=== PATIENT | female | born 1945 | race Caucasian/White ===

== ENCOUNTER 2020-10-05 09:37 | Outpatient (REF) | payer MEDICARE, OTHER, SELFPAY ==
[2020-10-05 11:18] LABS: Hematocrit 39.4 % (37-47); Hemoglobin 12.8 g/dl (12.0-16.0); Mean Corpuscular HGB Conc 32.5 g/dl (31.0-35.0); Mean Corpuscular Volume 95.4 fL (80-98); Mean Platelet Volume 10.6 fL (9.4-12.3); Platelet Count 257 X10*3/uL (160-400); Red Blood Count 4.13 X10*6/uL (4.20-5.50); Red Cell Distribution Width 14.1 % (11.0-16.0); White Blood Count 5.6 X10*3/uL (4.8-10.8)
[2020-10-05 11:54] LABS: Alanine Aminotransferase 13 U/L (0-31); Anion Gap 13 (12-20); Aspartate Amino Transferase 21 U/L (5-31); Blood Urea Nitrogen 13 mg/dL (9-16); Calcium 9.3 mg/dL (8.4-10.2); Carbon Dioxide 28 mmol/L (22-29); Chloride 104 mmol/L (96-108); Cholesterol 188 mg/dL; Estimated Glomerular Filt Rate > 60; Glucose Fasting 91 mg/dL (60-99); HDL Cholesterol 83 mg/dL; LDL Cholesterol Calculated 81 mg/dl; Potassium 3.8 mmol/L (3.3-5.1); Sodium 141 mmol/L (135-145); Triglycerides 123 mg/dL
[2020-10-05 12:03] LABS: Thyroid Stimulating Hormone 2.77 uIU/mL (0.32-4.0); Vitamin D 25-OH Total 59.5 ng/mL (>30)
== END 2020-10-05 09:38 | disposition home or self-care (01) ==
LOC: HO.HMGCLNP 09:37
PROVIDERS: PCP Internal Medicine; Visit Provider Internal Medicine
DX: E78.5 Hyperlipidemia, unspecified (principal); E03.9 Hypothyroidism, unspecified; Z78.0 Asymptomatic menopausal state
CPT/HCPCS: 80048; 80061; 82306; 84439; 84443; 84450; 84460; 85027

== ENCOUNTER 2021-04-12 09:29 | Outpatient (REF) | payer MEDICARE, OTHER, SELFPAY ==
[2021-04-12 12:39] LABS: Folate 18.6 ng/mL (> or = 4.0); Vitamin B12 566 pg/mL (200-900)
[2021-04-12 14:22] LABS: Alanine Aminotransferase 16 U/L (0-31); Aspartate Amino Transferase 22 U/L (5-31); Cholesterol 193 mg/dL; HDL Cholesterol 87 mg/dL; LDL Cholesterol Calculated 76 mg/dl; Triglycerides 150 mg/dL
[2021-04-12 14:27] LABS: Vitamin D 25-OH Total 61.9 ng/mL (>30)
== END 2021-04-12 09:30 | disposition home or self-care (01) ==
LOC: HO.HMGCLDS 09:29
PROVIDERS: PCP Internal Medicine; Visit Provider Internal Medicine
DX: E03.9 Hypothyroidism, unspecified (principal); E78.5 Hyperlipidemia, unspecified; Z78.0 Asymptomatic menopausal state
CPT/HCPCS: 36415; 80061; 82306; 82607; 82746; 84450; 84460

== ENCOUNTER 2021-05-27 08:45 | Outpatient (REF) | payer MEDICARE, OTHER, SELFPAY ==
--- NOTE | ~2021-05-27 | MM_ITS ---
EXAMINATION: MM SCREENING DIGITAL BREAST TOMOSYNTHESIS, BILATERAL CLINICAL INFORMATION: Screening. Asymptomatic. The lifetime risk of breast cancer based on the Tyrer-Cuzick Model is 3.6%. COMPARISON: Mammography: April 21, 2020 and studies dating back to September 18, 2013 TECHNIQUE: Digital breast tomosynthesis is performed in both the craniocaudal and mediolateral oblique views along with computer-aided detection (CAD). Synthesized 2D images are generated from the tomosynthesis. FINDINGS: There are scattered areas of fibroglandular density (ACR BI-RADS breast composition Category b). There are no significant masses, abnormal calcifications, or other abnormalities. MM/MM tomosynthesis screening BI IMPRESSION: There are no significant changes from prior study. ASSESSMENT: BI-RADS 1: Negative RECOMMENDATION: Routine annual mammography screening. This patient's information was entered into a reminder system with a target due date for their next mammogram.
== END 2021-05-27 08:46 | disposition home or self-care (01) ==
LOC: HO.MAMMO 08:45
PROVIDERS: Visit Provider Internal Medicine
DX: Z12.31 Encounter for screening mammogram for malignant neoplasm of breast (principal)
CPT/HCPCS: 77063; 77067

== ENCOUNTER 2021-11-17 11:10 | Outpatient (REF) | payer MEDICARE, OTHER, SELFPAY ==
[2021-11-17 14:21] LABS: Alanine Aminotransferase 15 U/L (0-31); Anion Gap 12 (12-20); Aspartate Amino Transferase 23 U/L (5-31); Blood Urea Nitrogen 12 mg/dL (9-16); Calcium 9.9 mg/dL (8.4-10.2); Carbon Dioxide 28 mmol/L (22-29); Chloride 106 mmol/L (96-108); Cholesterol 181 mg/dL; Estimated Glomerular Filt Rate > 60; Glucose Fasting 99 mg/dL (60-99); HDL Cholesterol 83 mg/dL; LDL Cholesterol Calculated 78 mg/dl; Potassium 4.4 mmol/L (3.3-5.1); Sodium 142 mmol/L (135-145); Triglycerides 104 mg/dL
[2021-11-17 14:30] LABS: Free T4 (Free Thyroxine) 1.04 ng/dL (0.71-1.85)
== END 2021-11-17 11:11 | disposition home or self-care (01) ==
LOC: HO.HMGCLDS 11:10
PROVIDERS: PCP Internal Medicine; Visit Provider Internal Medicine
DX: E03.9 Hypothyroidism, unspecified (principal); E78.5 Hyperlipidemia, unspecified; I10 Essential (primary) hypertension; Z78.0 Asymptomatic menopausal state
CPT/HCPCS: 36415; 80048; 80061; 82306; 84439; 84443; 84450; 84460

== ENCOUNTER 2022-02-09 06:25 | Day surgery (SDC) | payer MEDICARE, OTHER, SELFPAY ==
--- NOTE | 2022-02-07 12:05 | P.CONAN_ITS ---
Documented by User: Marline Alva NP 02/07/22 12:06 HPI - Anesthesia Eval Consult details Narrative: 76yo F for Colonoscopy PMFSH Active Problems Active Problems: All Active Problems (Updated 02/02/22 @ 19:31 by Jessica Antunez, SARAH) Mild intermittent asthma (Acute) Primary osteoarthritis of knees, bilateral (Acute) Tubular adenoma of colon (Acute) Postmenopause (Acute) Dyslipidemia (Acute) Acquired hypothyroidism (Acute) Past Medical History Medical History Acquired hypothyroidism Arthritis Dyslipidemia History of blood transfusion Intraocular melanoma of left eye Mild intermittent asthma Postmenopause Primary osteoarthritis of knees, bilateral Tubular adenoma of colon Family History Family History Father Coronary artery disease Brother Colon cancer Surgical History Surgical History History of appendectomy History of colonoscopy History of meniscectomy of right knee History of repair of rectocele History of right breast biopsy History of surgical removal of ganglion cyst Hx of enucleation of left eyeball Hx of tonsillectomy Social History Social History Housing: House Alcohol intake: current Alcohol intake frequency: 3 or more drinks per day Patient Tobacco Use Status: Former Tobacco user Years Smoked: 20 years Use of substances other than those prescribed or required for medical reasons: No Are you DNR?: No Advance Directives: No Advance Directives Information Provided: Yes Advance Directives on File: No Recently lost weight without trying: No Nutrition Risks: No Nutritional Risk Current occupational status: retired Cognitive needs: No Hearing needs: No Vision needs: Yes Meds Allergies Allergy/AdvReac Type Severity Reaction Status Date / Time No Known Allergies Allergy Mild N/A Verified 11/23/21 11:12 Home Medications Medication Instructions Recorded Confirmed Last Taken Type cholecalciferol (vitamin D3) 25 25 mcg PO DAILY 10/09/20 02/02/22 Unknown History mcg (1,000 unit) capsule folic acid 1 mg tablet 1 mg PO DAILY 10/09/20 02/02/22 Unknown History glucosamine HCl 500 mg tablet 500 mg PO DAILY 10/09/20 02/02/22 Unknown History multivitamin 1 tab PO DAILY 10/09/20 02/02/22 Unknown History omega-3 fatty acids 1,000 mg 1,000 mg PO DAILY 10/09/20 02/02/22 Unknown History capsule (Fish Oil Concentrate) vitamin B complex (B 1 tab PO DAILY 10/09/20 02/02/22 Unknown History Complex-Vitamin B12 tablet) aspirin 81 mg tablet,delayed 81 mg PO DAILY 11/23/21 02/09/22 01/26/22 History release (Adult Low Dose Aspirin) Exam Exam Date and Time: February 07, 2022 1205 Height,Weight and Vital Signs: Height 5 ft Pertinent Lab Results Pertinent Lab Results: Laboratory Tests 10/05/20 11/17/21 09:48 11:17 WBC 5.6 Hgb 12.8 Hct 39.4 Plt Count 257 Sodium 142 Potassium 4.4 Chloride 106 Carbon Dioxide 28 BUN 12 Creatinine 0.84 Assessment and Plan Assessment Anesthesia Assessment: Chart Reviewed Documented by User: Elizabeth Lu MD 02/09/22 07:28 [facility] Past Medical History Medical History Acquired hypothyroidism Arthritis Dyslipidemia History of blood transfusion Intraocular melanoma of left eye Mild intermittent asthma Postmenopause Primary osteoarthritis of knees, bilateral Tubular adenoma of colon Functional capacity: independent ambulation Patient : No Family History Family History Father Coronary artery disease Brother Colon cancer Family history of problems with anesthesia: No Surgical History Surgical History History of appendectomy History of colonoscopy History of meniscectomy of right knee History of repair of rectocele History of right breast biopsy History of surgical removal of ganglion cyst Hx of enucleation of left eyeball Hx of tonsillectomy History of Problems with Anesthesia: No Social History Social History Housing: House Alcohol intake: current Alcohol intake frequency: 3 or more drinks per day Patient Tobacco Use Status: Former Tobacco user Years Smoked: 20 years Use of substances other than those prescribed or required for medical reasons: No Are you DNR?: No Advance Directives: No Advance Directives Information Provided: Yes Advance Directives on File: No Recently lost weight without trying: No Nutrition Risks: No Nutritional Risk Current occupational status: retired Cognitive needs: No Hearing needs: No Vision needs: Yes Meds Allergies Allergy/AdvReac Type Severity Reaction Status Date / Time No Known Allergies Allergy Mild N/A Verified 11/23/21 11:12 Home Medications Medication Instructions Recorded Confirmed Last Taken Type cholecalciferol (vitamin D3) 25 25 mcg PO DAILY 10/09/20 02/02/22 Unknown History mcg (1,000 unit) capsule folic acid 1 mg tablet 1 mg PO DAILY 10/09/20 02/02/22 Unknown History glucosamine HCl 500 mg tablet 500 mg PO DAILY 10/09/20 02/02/22 Unknown History multivitamin 1 tab PO DAILY 10/09/20 02/02/22 Unknown History omega-3 fatty acids 1,000 mg 1,000 mg PO DAILY 10/09/20 02/02/22 Unknown History capsule (Fish Oil Concentrate) vitamin B complex (B 1 tab PO DAILY 10/09/20 02/02/22 Unknown History Complex-Vitamin B12 tablet) aspirin 81 mg tablet,delayed 81 mg PO DAILY 11/23/21 02/09/22 01/26/22 History release (Adult Low Dose Aspirin) Exam Airway Mallampati Class: II TM Dist: >3cm Neck ROM: Full Heart: RRR Lungs: CTA Assessment and Plan Final Anesthetic Review Family History of Problems with Anesthesia: No History of Problems with Anesthesia: No ASA Class: II Final Preanesthetic Review: No Changes in Pt Med Stat, Meds/Allgs Chart Reviewed, Consent Obtained/Reviewed and Anes Risks/Benef Reviewed Patient Risk: Low Procedure Risk: Low Anesthetic Plan Anesthetic Plan: MAC: Disposition: Standard PACU
[2022-02-09 07:08] VITALS: BP 127/74; PULSE 55; RESP 16; TEMP 36.1; O2SAT 97; BMI 26.4
[2022-02-09] MEDS: Lactated Ringers 1,000 ML 100 ML IVCONT (07:12)
[2022-02-09 08:32] VITALS: BP 101/57; PULSE 55; RESP 20; TEMP 36.1; O2SAT 99
--- NOTE | 2022-02-09 08:39 | P.BOP_ITS ---
Brief Operative Note Date of Service: 02/09/22 Pre-op diagnosis: Screening Post-op diagnosis: other (Diverticulosis) Procedure: Colonoscopy to the cecum and TI Surgeon: Paul Machuca Anesthesia: MAC Was an Route Sales Specialist used for this Procedure?: No Estimated blood loss (mL): 0 Pathology: none sent Condition: stable Disposition: PACU
[2022-02-09 08:46] VITALS: BP 120/65; PULSE 51; RESP 20; TEMP 36.1; O2SAT 100
--- NOTE | 2022-02-09 09:02 | HO.POSTANES ---
Post Anesthesia Evaluation Post Anesthesia Evaluation Vital Signs: Vital Signs Temp Pulse Resp BP Pulse Ox O2 Del Method 02/09/22 08:46 97 F 51 20 120/65 100 Room Air 02/09/22 08:32 97 F 55 20 101/57 L 99 Room Air 02/09/22 07:08 97 F 55 16 127/74 97 Room Air Anesthesia: Monitored Mental Status: Awake Pain Control: Satisfactory Nausea/Vomiting: None Hydration: Adequate Anesthesia-Related Issues: No Anes. Related Issues
--- NOTE | 2022-02-09 20:48 | OP_ITS ---
SURGEON: Paul Machuca MD INDICATIONS: The patient presents for evaluation of colorectal cancer screening and personal history of tubular adenoma of the colon. Full consent has been obtained from her for this, including risks of bleeding and perforation. PREOPERATIVE DIAGNOSIS: Colorectal cancer screening and personal history of tubular adenoma of the colon. POSTOPERATIVE DIAGNOSIS: Colorectal cancer screening and personal history of tubular adenoma of the colon, diverticulosis, and internal hemorrhoids. PROCEDURE PERFORMED: Colonoscopy to the cecum and terminal ileum. ESTIMATED BLOOD LOSS: COMPLICATIONS: ANESTHESIA: Monitored anesthesia care. ASSISTANTS: SPECIMENS: DESCRIPTION OF PROCEDURE: The patient was placed in the left lateral decubitus position. The digital rectal exam revealed no abnormalities. The Olympus video pediatric colonoscope was entered into the rectum and advanced easily to the cecum. Once in the cecum, I did identify a normal-appearing cecal pouch other than some diverticula. The terminal ileum was cannulated and appeared normal. The scope was withdrawn back in the colon. The entire cecum and ileocecal valve appeared normal. The scope was slowly withdrawn assessing all mucosal surfaces carefully. Preparation was excellent. I did not visualize any sign of polyps, colitis, nor angiodysplasia. There was a moderate amount of diverticulosis in the ascending colon and sigmoid colon. In the rectum, the scope was retroflexed visualizing some small internal hemorrhoids, but no other pathology. The rectal mucosa appeared normal. The scope was straightened and withdrawn from the patient. She tolerated the procedure well and was returned to the recovery area in stable condition. IMPRESSION: 1. Diverticulosis. 2. Internal hemorrhoids. PLAN: Given today's negative exam and a negative colonoscopy in 2017, and her age of 76, I do not think she will need any further screening colonoscopies. As such, she will see me on a p.r.n. basis. She was advised that she could resume aspirin and fish oil today. MD MOISES Elaine/GUILLEL / [id number]
== END 2022-02-09 09:15 | disposition home or self-care (01) ==
PROVIDERS: PCP Internal Medicine; Visit Provider Internal Medicine
PROC: 0DJD8ZZ Inspection of Lower Intestinal Tract, Via Natural or Artificial Opening Endoscopic (ICD-10-PCS; CPT 45378; principal; 2022-02-09 07:30)
DX: Z12.11 Encounter for screening for malignant neoplasm of colon (principal); Z86.010 Personal history of colon polyps; Z80.0 Family history of malignant neoplasm of digestive organs; K57.30 Diverticulosis of large intestine without perforation or abscess without bleeding; K64.8 Other hemorrhoids; E78.5 Hyperlipidemia, unspecified; E03.9 Hypothyroidism, unspecified; Z85.840 Personal history of malignant neoplasm of eye; Z90.01 Acquired absence of eye; Z79.899 Other long term (current) drug therapy; Z79.82 Long term (current) use of aspirin; Z87.891 Personal history of nicotine dependence
CPT/HCPCS: G0105

== ENCOUNTER 2022-05-10 09:39 | Outpatient (REF) | payer MEDICARE, OTHER, SELFPAY ==
--- NOTE | ~2022-05-10 | XR_ITS ---
EXAMINATION: XR WRIST, RIGHT CLINICAL INFORMATION: Pain COMPARISON: None TECHNIQUE: PA, lateral, and oblique views of the right wrist. FINDINGS: No acute fracture or dislocation. Chronic erosion of the distal radius at the distal radioulnar joint with prominent osteophytes at the distal ulna. Soft tissue calcification surrounds this area. Severe chronic degenerative changes of the first carpometacarpal joint with joint space narrowing, sclerosis, and osteophyte. Osteophytes are noted at the second and third metacarpophalangeal joints. Prominent soft tissue swelling of the wrist. XR/XR wrist RT min 3V IMPRESSION: 1. No acute fracture or malalignment. Prominent soft tissue swelling of the wrist. 2. Severe degenerative changes of the first carpometacarpal joint. 3. Chronic erosion of the distal radius at the distal radioulnar joint. Associated significant degenerative change. Cannot exclude recurrent or prior infection at this site, particularly given the soft tissue calcification and swelling.
== END 2022-05-10 09:40 | disposition home or self-care (01) ==
LOC: HO.HMGCX 09:39
PROVIDERS: PCP Internal Medicine; Visit Provider Emergency Medicine
DX: M25.50 Pain in unspecified joint (principal)
CPT/HCPCS: 73110

== ENCOUNTER 2022-05-30 09:24 | Outpatient (REF) | payer MEDICARE, OTHER, SELFPAY ==
--- NOTE | ~2022-05-30 | MM_ITS ---
EXAMINATION: MM SCREENING DIGITAL BREAST TOMOSYNTHESIS, BILATERAL CLINICAL INFORMATION: Screening. Asymptomatic. COMPARISON: Mammography: 05/27/2021, 04/21/2020, 12/21/2018 TECHNIQUE: Digital breast tomosynthesis is performed in both the craniocaudal and mediolateral oblique views along with computer-aided detection (CAD). Synthesized 2D images are generated from the tomosynthesis. FINDINGS: There are scattered areas of fibroglandular density (ACR BI-RADS breast composition Category b). There are no significant masses, abnormal calcifications, or other abnormalities. No developing density or architectural abnormality. Again, there are scattered bilateral round and rim and ductal secretory calcifications. Small stable nodule anterior medial left breast with fine peripheral calcification again seen. The axilla and skin contours are unremarkable. MM/MM tomosynthesis screening BI IMPRESSION: No mammographic evidence of malignancy. ASSESSMENT: BI-RADS 2: Benign RECOMMENDATION: Routine annual mammography screening. This patient's information was entered into a reminder system with a target due date for their next mammogram.
== END 2022-05-30 09:25 | disposition home or self-care (01) ==
LOC: HO.MAMMO 09:24
PROVIDERS: Visit Provider Internal Medicine
DX: Z12.31 Encounter for screening mammogram for malignant neoplasm of breast (principal)
CPT/HCPCS: 77063; 77067

== ENCOUNTER 2022-06-30 07:46 | Outpatient (REF) | payer MEDICARE, OTHER, SELFPAY ==
[2022-06-30 11:21] LABS: MANUAL DIFF FLAG NO
[2022-06-30 11:48] LABS: Alanine Aminotransferase 17 U/L (0-31); Aspartate Amino Transferase 22 U/L (5-31); Cholesterol 179 mg/dL; HDL Cholesterol 77 mg/dL; LDL Cholesterol Calculated 73 mg/dl; Triglycerides 149 mg/dL
[2022-06-30 11:54] LABS: Basophils Percent Auto 0.6 % (0-2); Eosinophils Absolute Auto 0.2 X10*3/uL (0.0-0.4); Eosinophils Percent Auto 3.3 % (0-4); Hematocrit 42.6 % (37.0-47.0); Hemoglobin 13.6 g/dl (12.0-16.0); Imm Gran Abs Auto 0.01 X10*3/uL (0.00-0.03); Imm Gran Pct Auto 0.1 % (0.0-0.4); Lymphocytes Percent Auto 44.6 % (20-40); Mean Corpuscular HGB Conc 31.9 g/dl (31.0-35.0); Mean Corpuscular Hemoglobin 30.6 pg (27.0-33.0); Mean Corpuscular Volume 95.7 fL (80.0-98.0); Mean Platelet Volume 10.8 fL (9.4-12.3); Monocytes Absolute Auto 0.5 X10*3/uL (0.1-1.2); Monocytes Percent Auto 6.9 % (2-11); Neutrophils Percent Auto 44.5 % (45-73); Platelet Count 287 X10*3/uL (160-400); Red Blood Count 4.45 X10*6/uL (4.20-5.50); Red Cell Distribution Width 13.5 % (11.0-16.0); White Blood Count 6.7 X10*3/uL (4.8-10.8)
[2022-06-30 12:13] LABS: Vitamin D 25-OH Total 61.4 ng/mL (>30)
[2022-06-30 13:04] LABS: Free T4 (Free Thyroxine) 1.08 ng/dL (0.71-1.85)
== END 2022-06-30 07:47 | disposition home or self-care (01) ==
LOC: HO.HMGCLDS 07:46
PROVIDERS: PCP Internal Medicine; Visit Provider Internal Medicine
DX: D12.6 Benign neoplasm of colon, unspecified (principal); E03.9 Hypothyroidism, unspecified; E78.5 Hyperlipidemia, unspecified; Z78.0 Asymptomatic menopausal state
CPT/HCPCS: 36415; 80061; 82306; 84439; 84443; 84450; 84460; 85025

== ENCOUNTER 2022-07-07 10:33 | Outpatient (AMB) | payer MEDICARE, OTHER, SELFPAY ==
--- NOTE | 2022-07-07 10:42 | MHC.PC.OV ---
Vital Signs 07/07/22 10:45 Height 4 ft 11 in Weight 130 lb BMI 26.2 BP 110/64 Blood Pressure Location Lt brachial Position Sitting Pulse 69 Pulse Source Pulse Oximeter Pulse Oximetry (%) 98 Oxygen Delivery Method Room Air Intake Visit Reasons: 6 mo f/u lipids,thyroid Intake Note: Pt is here today for her 6 months f/u Allergies No Known Allergies Allergy (Mild, Verified 11/03/22 13:56) N/A Medication List - Last Reconciled 07/07/22 by Pina Wagner MD cholecalciferol (vitamin D3) 25 mcg PO DAILY folic acid 1 mg PO DAILY glucosamine HCl 500 mg PO DAILY indomethacin 25 mg PO TID PRN levothyroxine 50 mcg PO QAM multivitamin 1 tab PO DAILY omega-3 fatty acids (Fish Oil Concentrate) 1,000 mg PO DAILY simvastatin 20 mg PO BEDTIME vitamin B complex (B Complex-Vitamin B12 tablet) 1 tab PO DAILY Tobacco use date assessed: 07/07/22 Fall risk assessment: No Falls in past year Last assessed Fall Risk: 07/07/22 HPI 6 mo f/u lipids,thyroid HPI Details 77-year-old lady with hypothyroidism, and dyslipidemia, here today for her follow-up. She has been feeling well, compliant with taking medications, currently on thyroxine 50 mcg daily in a.m. and simvastatin 20 mg at bedtime together with [place] 3 fatty acids taken daily. She has been trying to stay active, but no regular exercise. No complaints at present time [facility] Medical History Acquired hypothyroidism Arthritis Dyslipidemia History of blood transfusion Intraocular melanoma of left eye Mild intermittent asthma Osteoarthritis of right wrist Postmenopause Primary osteoarthritis of knees, bilateral Tubular adenoma of colon Surgical History History of appendectomy History of colonoscopy History of meniscectomy of right knee History of repair of rectocele History of right breast biopsy History of surgical removal of ganglion cyst Hx of enucleation of left eyeball Hx of tonsillectomy Family History Father Coronary artery disease Brother Colon cancer Social History Housing: House Alcohol intake: current Alcohol intake frequency: 3 or more drinks per day Patient Tobacco Use Status: Former Tobacco user Years Smoked: 20 years e-Cigarette/Vaping Use: Never Used Current occupational status: retired Cognitive needs: No Hearing needs: No Vision needs: Yes Questionnaire PHQ-9 Over the last 2 weeks, how often have you been bothered by any of the following problems? 1. Little interest or pleasure in doing things: several days 2. Feeling down, depressed, or hopeless: not at all 3. Trouble falling or staying asleep, or sleeping too much: more than half the days 4. Feeling tired or having little energy: not at all 5. Poor appetite or overeating: not at all 6. Feeling bad about yourself - or that you are a failure or have let yourself or your family down: not at all 7. Trouble concentrating on things, such as reading the newspaper or watching television: not at all 8. Moving or speaking so slowly that other people could have noticed. Or the opposite - being so fidgety or restless that you have been moving around a lot more than usual: not at all 9. Thoughts that you would be better off or of hurting yourself in some way: not at all Total score: 3 Depression Screening Interpretation: Negative 10999 - PHQ-9 Billing: Yes Source: Developed by Drs. Paul Mariee, Mary Lou Harper, Yong Perez and colleagues, with an educational martha from [employer]. Thrive Questionnaire Date Thrive assessed: 07/07/22 I am a: Patient What is your living situation today?: I have a steady place to live Within the past 12 months, did the food you bought not last and you didn't have the money to get more?: Never true Within the past 12 months, did you worry whether your food would run out before you got money to buy more?: Never true Do you have trouble paying for medicines?: No Do you have trouble getting transportation to medical appointments?: No Do you have trouble paying your heating and electricity bill?: No Do you have trouble taking care of your child, family member or friend?: No Do you have trouble with day-to-day activities such as bathing, preparing meals, shopping, managing finances, etc.?: No Are you currently unemployed and looking for a job?: No Are you interested in more education?: No REGINE-7 AMB Questionnaire REGINE-7 Date REGINE - 7 assessed: 07/07/22 Feeling nervous, anxious, or on edge: 1 = Several days Not being able to stop or control worryin = Several days Worrying too much about different things: 1 = Several days Trouble relaxin = Several days Being so restless that it is hard to sit still: 0 = Not at all Becoming easily annoyed or irritable: 0 = Not at all Feeling afraid as if something awful might happen: 0 = Not at all Total REGINE-7 score (0-4 normal; 5-9 mild; 10-14 moderate; 15-21 severe): 4 Source: Developed by Drs. Paul Mariee, Mary Lou Harper, Yong Perez and colleagues, with an educational martha from [employer]. REGINE-7 Assessment Billing REGINE-7 Assessment Tool: REGINE-7 Assessment 10647 Asthma Control Questionnaire In the past 4 weeks, how much of the time did your asthma keep you from getting as much done at work, school or at home?: None of the time During the past 4 weeks, how often have you had shortness of breath?: Not at all During the past 4 weeks, how often did your asthma symptoms wake you up at night or earlier than usual in the morning?: Not at all During the past 4 weeks, how often have you had to use your rescue inhaler or nebulizer medication?: Not at all How would you rate your asthma control during the past 4 weeks?: Completely controlled Score: 25 Review of Systems Const All systems reviewed & are unremarkable except as noted in HPI and below Physical exam (Primary Care) Vital Signs: Last Vital Signs Pulse 69 07/07/22 10:45 BP 110/64 07/07/22 10:45 Pulse Ox 98 07/07/22 10:45 Oxygen Delivery Method Room Air 07/07/22 10:45 BMI result Body Mass Index 26.2 Tobacco/Smoking Status: Tobacco use Status Tobacco use date assessed 07/07/22 07/07/22 10:46 Patient Tobacco Use Status Former Tobacco user 07/07/22 10:44 e-Cigarette/Vaping Use Never Used 07/07/22 10:46 PHQ-9: PHQ-9 Score PHQ-9: Total score 3 07/07/22 11:39 Depression Screening Interpretation: Negative Thrive Assessment: Date of Thrive Assessment Date Thrive assessed 07/07/22 07/07/22 11:39 Const General: comfortable, no acute distress and alert Orientation/consciousness: patient oriented x3 Limitations: no limitations HENMT Mouth: moist mucous membranes Neck Neck: Yes full ROM (Thyroid gland nonpalpable), Yes no lymphadenopathy and Yes supple Resp Effort & Inspection: normal respiratory effort and able to speak in complete sentences Auscultation: clear to auscultation bilaterally Cardio Rate: regular rate Rhythm: regular rhythm Heart sounds: S1 normal heart sound present and S2 normal heart sound present GI Palpation (GI): Soft to palpation, nontender and no masses Auscultation: normal bowel sounds Skin General skin exam: no rashes or lesions noted Neuro General: patient oriented x3, gait normal, tone normal, moves all extremities, Normal light touch and pain sensation and no focal motor deficits Cranial nerves: Yes CN's II-XII intact bilaterally Cognition (Neuro): normal cognition Extrem General: Yes full ROM, Yes no joint enlargement, Yes no clubbing, cyanosis or edema and Yes no calf tenderness Immunizations pneumoc 20-michael conj-dip cr(PF) Performing Provider: Pina Wagner MD Administered by: ELMA Oquendo on 07/07/22 11:35 Dose Route Admin Location Lot Number Expiration Date NDC Staff Counsel 0.5 mL IM Left Deltoid [id number] 10/21/23 0067-6640-97 [employer] VIS Given Date VIS Provided VIS Publication Date 07/07/22 Single Vaccine 21 Eligibility Eligibility Date Funding Source Not [facility] Eligible 07/07/22 Private Results Reviewed Results Reviewed: ENTERED: 06/30/22-748 OTHR WHITFIELD: ORDERED: CBC Auto Diff Test Result Flag Reference Site WBC 6.7 4.8-10.8 X10*3/uL RBC 4.45 4.20-5.50 X10*6/uL HGB 13.6 12.0-16.0 g/dl HCT 42.6 37.0-47.0 % MCV 95.7 80.0-98.0 fL MCH 30.6 27.0-33.0 pg MCHC 31.9 31.0-35.0 g/dl RDW 13.5 11.0-16.0 % PLT 287 160-400 X10*3/uL ENTERED: 06/30/22 YUNIEL WHITFIELD: ORDERED: AST, ALT, Lipid Panel, Vitamin D 25-OH, Free T4, TSH Test Result Flag Reference Site AST (GOT) 22 5-31 U/L ALT (GPT) 17 0-31 U/L Triglyceride 149 mg/dL Desirable Triglyceride: less than 150 mg/dL Borderline High Triglyceride 150-199 mg/dL High Triglyceride: 200-499 mg/dL Very High Triglyceride: greater than or equal to 5OO mg/dL Chol 179 mg/dL Desirable Cholesterol: less than 200 mg/dL Borderline High Cholesterol: 200-239 mg/dL High Cholesterol: greater than 239 mg/dL LDL Calculated 73 mg/dl Desirable LDL: less than 100 mg/dL Near Optimal/Above Optimal LDL: 110-129 mg/dL Borderline High LDL: 130-159 mg/dL High LDL: 160-189 mg/dL Very High LDL: greater than or equal to 190 mg/dL HDL 77 mg/dL Desirable HDL: greater than 40 mg/dL Note: This HDL assay may give artificially low results in patients with liver disease. Vit D 25-OH Tot 61.4 >30 ng/mL Health Based Reference Values* < 20 ng/mL Deficient 20-30 ng/mL Insufficient > 30 ng/mL Sufficient *Myranda BOJORQUEZ. N Engl J Med. 2007;[id number]:[id number] Care must be taken in interpreting Vitamin D results from different laboratories and methodologies. Published data demonstrated that results from patients undergoing hemodialysis may show a negative bias when tested with various automated 25-OH vitamin D assays when compared to LC-MS/MS. When testing samples from patients whose predominant form of Vitamin D is Vitamin D2, such as patients receiving Vitamin D2 supplementation, results that are subtherapeutic should be confirmed with another method such as LC-MS/MS. Free T4 1.08 0.71-1.85 ng/dL TSH 3rd Gen. 4.50 H 0.32-4.0 uIU/mL Note: A sustained TSH level above 2.5 uIU/mL may warrant further investigation. Assessment and Plan Assessment & Plan (1) Dyslipidemia: Code(s): E78.5 - Hyperlipidemia, unspecified Plan: Reviewed recent fasting lipid profile with patient with lipid levels goal . Continue with simvastatin and [place] 3 fatty acid supple , in addition to adherence to low-cholesterol diet and regular exercise, at least 30 minutes 3 to 4 times a week. Advised patient to make healthy food choices, eat more fruits, vegetables, whole grains, wild caught fish and low-fat dairy. Limit amount of meat and fried or fatty food products, as well as processed foods and fast foods. Follow-up scheduled with repeat fasting lipid panel in 4 months. (2) Acquired hypothyroidism: Code(s): E03.9 - Hypothyroidism, unspecified Plan: Thyroid levels are within normal limits, feels fine and current dose continued on levothyroxine 50 mcg daily in a.m. recheck levels again in 4 months (3) Need for pneumococcal 20-valent conjugate vaccination: Code(s): Z23 - Encounter for immunization Plan: Prevnar 20 given today Orders: Orders Alanine Aminotransferase 10/24/22 M19.031 - Primary osteoarthritis, right wrist, M17.0 - Bilateral primary osteoarthritis of knee, Z78.0 - Asymptomatic menopausal state, E78.5 - Hyperlipidemia, unspecified, E03.9 - Hypothyroidism, unspecified Aspartate Amino Transferase 10/24/22 M19.031 - Primary osteoarthritis, right wrist, M17.0 - Bilateral primary osteoarthritis of knee, Z78.0 - Asymptomatic menopausal state, E78.5 - Hyperlipidemia, unspecified, E03.9 - Hypothyroidism, unspecified Vitamin B12 and Folate 10/24/22 M19.031 - Primary osteoarthritis, right wrist, M17.0 - Bilateral primary osteoarthritis of knee, Z78.0 - Asymptomatic menopausal state, E78.5 - Hyperlipidemia, unspecified, E03.9 - Hypothyroidism, unspecified Basic Metabolic Panel Fasting 10/24/22 M19.031 - Primary osteoarthritis, right wrist, M17.0 - Bilateral primary osteoarthritis of knee, Z78.0 - Asymptomatic menopausal state, E78.5 - Hyperlipidemia, unspecified, E03.9 - Hypothyroidism, unspecified Lipid Panel 10/24/22 M19.031 - Primary osteoarthritis, right wrist, M17.0 - Bilateral primary osteoarthritis of knee, Z78.0 - Asymptomatic menopausal state, E78.5 - Hyperlipidemia, unspecified, E03.9 - Hypothyroidism, unspecified Free T4 (Free Thyroxine) 10/24/22 E03.9 - Hypothyroidism, unspecified, M19.031 - Primary osteoarthritis, right wrist, M17.0 - Bilateral primary osteoarthritis of knee, Z78.0 - Asymptomatic menopausal state, E78.5 - Hyperlipidemia, unspecified Thyroid Stimulating Hormone 10/24/22 M19.031 - Primary osteoarthritis, right wrist, M17.0 - Bilateral primary osteoarthritis of knee, Z78.0 - Asymptomatic menopausal state, E78.5 - Hyperlipidemia, unspecified, E03.9 - Hypothyroidism, unspecified Uric Acid 10/24/22 M19.031 - Primary osteoarthritis, right wrist, M17.0 - Bilateral primary osteoarthritis of knee, Z78.0 - Asymptomatic menopausal state, E78.5 - Hyperlipidemia, unspecified, E03.9 - Hypothyroidism, unspecified Vitamin D 25-OH Total 10/24/22 M19.031 - Primary osteoarthritis, right wrist, M17.0 - Bilateral primary osteoarthritis of knee, Z78.0 - Asymptomatic menopausal state, E78.5 - Hyperlipidemia, unspecified, E03.9 - Hypothyroidism, unspecified Pneumococcal 20 Immunization 07/07/22 Z23 - Encounter for immunization Coding Level of Care Code Est Pt Level 3 (36255) Diagnoses Dyslipidemia E78.5 Acquired hypothyroidism E03.9 Need for pneumococcal 20-valent conjugate vaccination Z23 Additional Codes REGINE-7 Assessment Billing - REGINE-7 Assessment Tool: REGINE-7 Assessment 08226 ([id number])
[2022-07-07 10:45] VITALS: BP 110/64; PULSE 69; O2SAT 98; BMI 26.2
== END 2022-07-07 11:36 | disposition home or self-care (01) ==
LOC: HO.HMGC 10:33
PROVIDERS: PCP Internal Medicine; Visit Provider Internal Medicine
DX: Z23 Encounter for immunization
CPT/HCPCS: 90471; 90677; 99213

== ENCOUNTER 2022-10-27 08:35 | Outpatient (REF) | payer MEDICARE, OTHER, SELFPAY ==
[2022-10-27 13:49] LABS: Alanine Aminotransferase 16 U/L (0-31); Anion Gap 17 (12-20); Aspartate Amino Transferase 25 U/L (5-31); Blood Urea Nitrogen 12 mg/dL (9-16); Calcium 9.5 mg/dL (8.4-10.2); Carbon Dioxide 25 mmol/L (22-29); Chloride 107 mmol/L (96-108); Cholesterol 196 mg/dL; Estimated Glomerular Filt Rate > 60; Glucose Fasting 93 mg/dL (60-99); HDL Cholesterol 87 mg/dL; LDL Cholesterol Calculated 86 mg/dl; Potassium 4.5 mmol/L (3.3-5.1); Sodium 144 mmol/L (135-145); Triglycerides 119 mg/dL; Uric Acid 5.7 mg/dL (2.4-5.7)
[2022-10-27 14:16] LABS: Folate 16.5 ng/mL (> or = 4.0); Free T4 (Free Thyroxine) 0.95 ng/dL (0.71-1.85); Thyroid Stimulating Hormone 3.11 uIU/mL (0.32-4.0); Vitamin B12 946 pg/mL (200-900)
== END 2022-10-27 08:36 | disposition home or self-care (01) ==
LOC: HO.HMGCLDS 08:35
PROVIDERS: PCP Internal Medicine; Visit Provider Internal Medicine
DX: E03.9 Hypothyroidism, unspecified (principal); E78.5 Hyperlipidemia, unspecified; M17.0 Bilateral primary osteoarthritis of knee; M19.031 Primary osteoarthritis, right wrist; Z78.0 Asymptomatic menopausal state
CPT/HCPCS: 36415; 80048; 80061; 82306; 82607; 82746; 84439; 84443; 84450; 84460; 84550

== ENCOUNTER 2023-04-27 11:32 | Outpatient (REF) | payer MEDICARE, OTHER, SELFPAY ==
[2023-04-27 13:28] LABS: Alanine Aminotransferase 13 U/L (0-31); Aspartate Amino Transferase 23 U/L (5-31); Cholesterol 171 mg/dL (<200); HDL Cholesterol 82 mg/dL (>40); LDL Cholesterol Calculated 70 mg/dL (<100); Triglycerides 96 mg/dL (<150)
[2023-04-27 13:44] LABS: Free T4 (Free Thyroxine) 1.01 ng/dL (0.71-1.85); Thyroid Stimulating Hormone 1.47 uIU/mL (0.32-4.0)
[2023-04-27 13:58] LABS: Folate 15.6 ng/mL (> or = 4.0); Vitamin B12 528 pg/mL (200-900)
== END 2023-04-27 11:33 | disposition home or self-care (01) ==
LOC: HO.HMGCLDS 11:32
PROVIDERS: PCP Internal Medicine; Visit Provider Internal Medicine
DX: E78.5 Hyperlipidemia, unspecified (principal); E03.9 Hypothyroidism, unspecified; R74.8 Abnormal levels of other serum enzymes; H61.23 Impacted cerumen, bilateral
CPT/HCPCS: 36415; 80061; 82607; 82746; 84439; 84443; 84450; 84460

== ENCOUNTER 2023-05-03 10:31 | Outpatient (AMB) | payer MEDICARE, OTHER, SELFPAY ==
[2023-05-03 11:16] VITALS: BP 118/60; PULSE 61; O2SAT 96; BMI 26.5
--- NOTE | 2023-05-03 11:16 | A.OFFPC_ITS ---
Vital Signs 05/03/23 11:16 Height 4 ft 11 in Weight 131 lb BMI 26.5 BP 118/60 Blood Pressure Location Rt brachial Position Sitting Pulse 61 Pulse Source Pulse Oximeter Pulse Oximetry (%) 96 Oxygen Delivery Method Room Air Intake Visit Reasons: 6m follow up Intake Note: patient is here for her 6mo. f/u Allergies No Known Allergies Allergy (Mild, Verified 05/03/23 11:35) N/A Medication List - Last Reconciled 05/03/23 by Pina Wagner MD folic acid 1 mg PO DAILY glucosamine HCl 500 mg PO DAILY levothyroxine 50 mcg PO QAM multivitamin 1 tab PO DAILY omega-3 fatty acids (Fish Oil Concentrate) 1,000 mg PO DAILY simvastatin 20 mg PO BEDTIME Tobacco use date assessed: 05/03/23 Fall risk assessment: No Falls in past year Last assessed Fall Risk: 05/03/23 Dental Screening Dental Screen Date: 05/03/23 Did you have a dental visit in the last 12 months?: Yes Did you have a dental problem in the last 6 months where you did not have access to dental care?: No Was dental information given to patient?: Patient has dentist HPI 6m follow up HPI Details 77-year-old lady, presents today for her six-month follow-up. She is currently feeling well, stays active, plays pickleball regularly she has been compliant with taking her medications and following healthy diet. Currently on simvastatin 20 mg at bedtime and [place] 3 fatty acid supplements for her hyperlipidemia, and is on levothyroxine 50 mcg once a day in a.m. for her hypothyroidism. 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, bilateral Tubular adenoma of colon Postmenopause Dyslipidemia Acquired hypothyroidism Surgical History History of colonoscopy History of surgical removal of ganglion cyst Hx of enucleation of left eyeball History of meniscectomy of right knee History of repair of rectocele History of right breast biopsy Hx of tonsillectomy History of appendectomy Family History Father Coronary artery disease Brother Colon cancer Social History Housing: House Alcohol intake: current Alcohol intake frequency: 3 or more drinks per day Patient Tobacco Use Status: Former Tobacco user Years Smoked: 20 years e-Cigarette/Vaping Use: Never Used Current occupational status: retired Cognitive needs: No Hearing needs: No Vision needs: Yes Questionnaire PHQ-9 Over the last 2 weeks, how often have you been bothered by any of the following problems? Depression Screening Interpretation: Negative Depression Screening Done: Yes Source: Developed by Drs. Paul Mariee, Mary Lou Harper, Yong Perez and colleagues, with an educational martha from [employer]. Thrive Questionnaire Date Thrive assessed: 11/01/22 AUDIT C Alcohol Use Questionnaire (AUDIT-C) 1. How often do you have a drink containing alcohol?: Monthly or less 2. How many drinks containing alcohol do you have on a typical day when you are drinking?: 1 or 2 Total Score: 1 REGINE-7 AMB Questionnaire REGINE-7 Date REGINE - 7 assessed: 11/01/22 Source: Developed by Drs. Paul Mariee, Mary Lou Harper, Yong Perez and colleagues, with an educational martha from [employer]. Review of Systems Const Denies difficulty sleeping Eyes Denies change in vision ENT Reports no additional complaints Card Reports no additional complaints, Denies chest pain and Denies dyspnea Resp Denies cough and Denies dyspnea GI Denies abdominal pain, Denies melena, Denies bloating, Denies hematochezia, Denies change in bowel habits and Denies heartburn Denies urinary frequency, Denies difficulty voiding and Denies dysuria Musc Reports as per HPI Skin/Breast Denies breast pain, Denies breast mass, Denies lesions and Denies rash Neuro Reports no additional complaints Psych Reports no additional complaints Endo Reports no additional complaints Hemanth/Lymph Reports no additional complaints Aller/Immun Reports no additional complaints Physical exam (Primary Care) Vital Signs: Last Vital Signs Pulse 61 05/03/23 11:16 BP 118/60 05/03/23 11:16 Pulse Ox 96 05/03/23 11:16 Oxygen Delivery Method Room Air 05/03/23 11:16 BMI result Body Mass Index 26.5 Tobacco/Smoking Status: Tobacco use Status Tobacco use date assessed 05/03/23 05/03/23 11:18 Patient Tobacco Use Status Former Tobacco user 05/03/23 11:18 e-Cigarette/Vaping Use Never Used 05/03/23 11:18 Depression Screening Interpretation: Negative Thrive Assessment: Date of Thrive Assessment Date Thrive assessed 11/01/22 05/03/23 11:18 Const General: comfortable, no acute distress and alert Orientation/consciousness: patient oriented x3 HENMT Ears: external ears normal General nose exam: Normal external nose present Mouth: moist mucous membranes Eyes Other: Artificial eye on left General: appearance normal, both eyes and all related structures Pupils: Equal, round and reactive pupils present Neck Other: Thyroid nonpalpable Neck: Yes full ROM, Yes no lymphadenopathy and Yes supple Resp Effort & Inspection: normal respiratory effort and able to speak in complete sentences Auscultation: clear to auscultation bilaterally Cardio Rate: regular rate Rhythm: regular rhythm Heart sounds: S1 normal heart sound present and S2 normal heart sound present GI Palpation (GI): Soft to palpation, nontender and no masses Auscultation: normal bowel sounds Back/Spine/Pelvis Back: No back tenderness Skin General skin exam: no rashes or lesions noted Neuro General: patient oriented x3, gait normal, tone normal, moves all extremities, Normal light touch and pain sensation and no focal motor deficits Cranial nerves: Yes CN's II-XII intact bilaterally and Yes Equal, round and reactive pupils present Cognition (Neuro): normal cognition Extrem General: Yes full ROM, Yes no joint enlargement, Yes no clubbing, cyanosis or edema and Yes no calf tenderness Psych Mental Status: mental status grossly normal Speech and movement: Normal speech and movement present Affect: normal affect Results Reviewed Results Reviewed: ENTERED: 04/27/23-[address]: ORDERED: AST, ALT, Lipid Panel, Free T4, TSH Test Result Flag Reference Site AST (GOT) 23 5-31 U/L ALT (GPT) 13 0-31 U/L Triglyceride 96 <150 mg/dL Desirable Triglyceride: less than 150 mg/dL Borderline High Triglyceride 150-199 mg/dL High Triglyceride: 200-499 mg/dL Very High Triglyceride: greater than or equal to 5OO mg/dL Cholesterol 171 <200 mg/dL Desirable Cholesterol: less than 200 mg/dL Borderline High Cholesterol: 200-239 mg/dL High Cholesterol: greater than 239 mg/dL LDL Calculated 70 <100 mg/dL Desirable LDL: less than 100 mg/dL Near Optimal/Above Optimal LDL: 110-129 mg/dL Borderline High LDL: 130-159 mg/dL High LDL: 160-189 mg/dL Very High LDL: greater than or equal to 190 mg/dL HDL 82 >40 mg/dL Desirable HDL: greater than 40 mg/dL Note: This HDL assay may give artificially low results in patients with liver disease. Free T4 1.01 0.71-1.85 ng/dL TSH 3rd Gen. 1.47 0.32-4.0 uIU/mL TSH 3rd Generation ([facility]) Assessment and Plan Assessment & Plan (1) Dyslipidemia: Code(s): E78.5 - Hyperlipidemia, unspecified Plan: Reviewed recent fasting lipid profile with patient with levels within normal limits . Continue with simvastatin and [place] 3 fatty acid supplements , in addition to adherence to low-cholesterol diet and regular exercise, at least 30 minutes 3 to 4 times a week. Advised patient to make healthy food choices, eat more fruits, vegetables, whole grains, wild caught fish and low-fat dairy. Limit amount of meat and fried or fatty food products, as well as processed foods and fast foods. Follow-up scheduled with repeat fasting lipid panel in 6 months. (2) Acquired hypothyroidism: Code(s): E03.9 - Hypothyroidism, unspecified Plan: Thyroid levels are within normal limits, will continue on current dose of levothyroxine. Recheck again levels in six-month Orders: Orders Lipid Panel 10/23/23 E78.5 - Hyperlipidemia, unspecified, E03.9 - Hypothyroidism, unspecified Free T4 (Free Thyroxine) 10/23/23 E03.9 - Hypothyroidism, unspecified, E78.5 - Hyperlipidemia, unspecified Alanine Aminotransferase 10/23/23 E78.5 - Hyperlipidemia, unspecified, E03.9 - Hypothyroidism, unspecified Thyroid Stimulating Hormone 10/23/23 E78.5 - Hyperlipidemia, unspecified, E03.9 - Hypothyroidism, unspecified Aspartate Amino Transferase 10/23/23 E78.5 - Hyperlipidemia, unspecified, E03.9 - Hypothyroidism, unspecified Coding Level of Care Code Est Pt Level 3 (73081) Diagnoses Dyslipidemia E78.5 Acquired hypothyroidism E03.9
== END 2023-05-03 11:53 | disposition home or self-care (01) ==
PROVIDERS: Visit Provider Internal Medicine
DX: E78.5 Hyperlipidemia, unspecified (principal); E03.9 Hypothyroidism, unspecified
CPT/HCPCS: 99213; 99499

== ENCOUNTER 2023-06-08 07:37 | Outpatient (REF) | payer MEDICARE, OTHER, SELFPAY ==
--- NOTE | ~2023-06-08 | MM_ITS ---
EXAMINATION: MM SCREENING DIGITAL BREAST TOMOSYNTHESIS, BILATERAL CLINICAL INFORMATION: Screening. Asymptomatic. COMPARISON: Mammography: 05/30/2022, 05/27/2021, 04/21/2020, and studies dating back to September 18, 2013 TECHNIQUE: Digital breast tomosynthesis is performed in both the craniocaudal and mediolateral oblique views along with computer-aided detection (CAD). Synthesized 2D images are generated from the tomosynthesis. FINDINGS: There are scattered areas of fibroglandular density (ACR BI-RADS breast composition Category b). Again, there are scattered benign dystrophic type and secretory calcifications in both breasts. There are no suspicious calcifications. There are no suspicious masses, suspicious grouped calcifications, or areas of architectural distortion in either breast. The parenchymal pattern is stable from prior exams. MM/MM tomosynthesis screening BI IMPRESSION: No mammographic evidence of malignancy. ASSESSMENT: BI-RADS BI-RADS 2 - Benign Findings RECOMMENDATION: Routine annual mammography screening. 1 year F/U This examination should not preclude the clinical evaluation of a suspicious palpable abnormality. This patient's information was entered into a reminder system with a target due date for their next mammogram.
== END 2023-06-08 07:38 | disposition home or self-care (01) ==
LOC: HO.MAMMO 07:37
PROVIDERS: PCP Internal Medicine; Visit Provider Internal Medicine
DX: Z12.31 Encounter for screening mammogram for malignant neoplasm of breast (principal)
CPT/HCPCS: 77063; 77067

== ENCOUNTER → 2023-06-08 07:45 | Outpatient (BNV) | payer MEDICARE, OTHER, SELFPAY | PROVIDERS: PCP Internal Medicine; Visit Provider Radiology Diagnostic Radiology | DX: Z12.31 Encounter for screening mammogram for malignant neoplasm of breast (principal) | CPT/HCPCS: 77063; 77067 ==

== ENCOUNTER 2023-11-01 09:18 | Outpatient (REF) | payer MEDICARE, OTHER, SELFPAY ==
[2023-11-01 11:48] LABS: Free T4 (Free Thyroxine) 1.05 ng/dL (0.71-1.85); Thyroid Stimulating Hormone 1.47 uIU/mL (0.32-4.0)
[2023-11-01 11:52] LABS: Alanine Aminotransferase 16 U/L (0-31); Aspartate Amino Transferase 22 U/L (5-31); Cholesterol 175 mg/dL (<200); HDL Cholesterol 76 mg/dL (>40); LDL Cholesterol Calculated 78 mg/dL (<100); Triglycerides 109 mg/dL (<150)
== END 2023-11-01 09:19 | disposition home or self-care (01) ==
LOC: HO.HMGCLDS 09:18
PROVIDERS: PCP Internal Medicine; Visit Provider Internal Medicine
DX: E03.9 Hypothyroidism, unspecified (principal); E78.5 Hyperlipidemia, unspecified
CPT/HCPCS: 36415; 80061; 84439; 84443; 84450; 84460

== ENCOUNTER 2023-11-06 11:26 | Outpatient (AMB) | payer MEDICARE, OTHER, SELFPAY ==
--- NOTE | 2023-11-06 11:31 | A.OFFPC_ITS ---
Vital Signs 11/06/23 11:37 Height 4 ft 10.5 in Weight 134 lb BMI 27.5 BP 124/72 Blood Pressure Location Lt brachial Position Sitting Pulse 59 Pulse Source Pulse Oximeter Pulse Oximetry (%) 98 Oxygen Delivery Method Room Air Intake Visit Reasons: 6 month fu Intake Note: Pt is here today for her 6 months Allergies No Known Allergies Allergy (Mild, Verified 11/06/23 12:08) N/A Medication List - Last Reconciled 11/06/23 by Pina Wagner MD folic acid 1 mg PO DAILY glucosamine HCl 500 mg PO DAILY levothyroxine 50 mcg PO QAM multivitamin 1 tab PO DAILY omega-3 fatty acids (Fish Oil Concentrate) 1,000 mg PO DAILY simvastatin 20 mg PO BEDTIME Tobacco use date assessed: 11/06/23 Fall risk assessment: No Falls in past year Last assessed Fall Risk: 11/06/23 Dental Screening Dental Screen Date: 11/06/23 Did you have a dental visit in the last 12 months?: Yes Did you have a dental problem in the last 6 months where you did not have access to dental care?: No Was dental information given to patient?: Patient has dentist HPI 6 month fu HPI Details 77-year-old lady with hyperlipidemia, hy pothyroidism and arthritis, here today for her follow-up. She has been compliant with taking her medications, with recent fasting labs showing normal thyroid levels and cholesterol levels. She however was recently diagnosed with basal cell CA on her scalp, cheek and shoulder and upper back, currently being followed at [facility] and is is consultation for possible Mohs surgery. She also has been having intermittent episodes of tingling and whitish discoloration of the tips of her fingers and toes pressure when exposed to cold temperature denies any pain in her fingers however she has difficulty sometimes opening door knobs and jars. Currently being seen by [facility] waiting appointment to get a nerve conduction study. 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, bilateral Tubular adenoma of colon Postmenopause Dyslipidemia Acquired hypothyroidism Surgical History History of colonoscopy History of surgical removal of ganglion cyst Hx of enucleation of left eyeball History of meniscectomy of right knee History of repair of rectocele History of right breast biopsy Hx of tonsillectomy History of appendectomy Family History Father Coronary artery disease Brother Colon cancer Social History Housing: House Alcohol intake: current Alcohol intake frequency: 3 or more drinks per day Patient Tobacco Use Status: Former Tobacco user Years Smoked: 20 years e-Cigarette/Vaping Use: Never Used Current occupational status: retired Cognitive needs: No Hearing needs: No Vision needs: Yes Questionnaire PHQ-9 Over the last 2 weeks, how often have you been bothered by any of the following problems? 1. Little interest or pleasure in doing things: not at all 2. Feeling down, depressed, or hopeless: not at all 3. Trouble falling or staying asleep, or sleeping too much: not at all 4. Feeling tired or having little energy: not at all 5. Poor appetite or overeating: not at all 6. Feeling bad about yourself - or that you are a failure or have let yourself or your family down: not at all 7. Trouble concentrating on things, such as reading the newspaper or watching television: not at all 8. Moving or speaking so slowly that other people could have noticed. Or the opposite - being so fidgety or restless that you have been moving around a lot more than usual: not at all 9. Thoughts that you would be better off or of hurting yourself in some way: not at all Total score: 0 Depression Screening Interpretation: Negative Depression Screening Done: Yes 03079 - PHQ-9 Billing: Yes Source: Developed by Drs. Paul Mariee, Mary Lou Harper, Yong Perez and colleagues, with an educational martha from [employer]. Thrive Questionnaire Date Thrive assessed: 11/06/23 I am a: Patient What is your living situation today?: I have a steady place to live Within the past 12 months, did the food you bought not last and you didn't have the money to get more?: Never true Within the past 12 months, did you worry whether your food would run out before you got money to buy more?: Never true Do you have trouble paying for medicines?: No Do you have trouble getting transportation to medical appointments?: No Do you have trouble paying your heating and electricity bill?: No Do you have trouble taking care of your child, family member or friend?: No Do you have trouble with day-to-day activities such as bathing, preparing meals, shopping, managing finances, etc.?: No Are you currently unemployed and looking for a job?: No Are you interested in more education?: No THRIVE Score: 0 AUDIT C Alcohol Use Questionnaire (AUDIT-C) 1. How often do you have a drink containing alcohol?: 2-3 times a week 2. How many drinks containing alcohol do you have on a typical day when you are drinking?: 1 or 2 3. How often do you have six or more drinks on one occasion?: Never Total Score: 3 REGINE-7 AMB Questionnaire REGINE-7 Date REGINE - 7 assessed: 11/06/23 Feeling nervous, anxious, or on edge: 1 = Several days Not being able to stop or control worryin = Several days Worrying too much about different things: 1 = Several days Trouble relaxin = Several days Being so restless that it is hard to sit still: 1 = Several days Becoming easily annoyed or irritable: 1 = Several days Feeling afraid as if something awful might happen: 0 = Not at all Total REGINE-7 score (0-4 normal; 5-9 mild; 10-14 moderate; 15-21 severe): 6 Source: Developed by Drs. Paul Mariee, Mary Lou Harper, Yong Perez and colleagues, with an educational martha from [employer]. REGINE-7 Assessment Billing REGINE-7 Assessment Tool: REGINE-7 Assessment 98170 Review of Systems Const Denies difficulty sleeping, Denies fatigue, Denies fever(s), Denies frequent falls and Denies weakness Eyes Denies change in vision ENT Reports no additional complaints Card Reports no additional complaints, Denies chest pain and Denies dyspnea Resp Denies cough and Denies dyspnea GI Denies abdominal pain, Denies melena, Denies bloating, Denies hematochezia, Denies change in bowel habits and Denies heartburn Denies urinary frequency, Denies difficulty voiding and Denies dysuria Musc Reports as per HPI Skin/Breast Reports as per HPI, Denies breast pain and Denies breast mass Neuro Reports no additional complaints, Denies frequent falls and Denies weakness Psych Reports no additional complaints Endo Reports no additional complaints and Denies fatigue Hemanth/Lymph Reports no additional complaints Aller/Immun Reports no additional complaints Physical exam (Primary Care) Vital Signs: Last Vital Signs Pulse 59 11/06/23 11:37 BP 124/72 11/06/23 11:37 Pulse Ox 98 11/06/23 11:37 Oxygen Delivery Method Room Air 11/06/23 11:37 BMI result Body Mass Index 27.5 Tobacco/Smoking Status: Tobacco use Status Tobacco use date assessed 11/06/23 11/06/23 11:34 Patient Tobacco Use Status Former Tobacco user 11/06/23 11:34 e-Cigarette/Vaping Use Never Used 11/06/23 11:34 PHQ-9: PHQ-9 Score PHQ-9: Total score 0 11/06/23 12:13 Depression Screening Interpretation: Negative Thrive Assessment: Date of Thrive Assessment Date Thrive assessed 11/06/23 11/06/23 11:42 Const General: comfortable, no acute distress and alert Orientation/consciousness: patient oriented x3 HENMT Ears: external ears normal General nose exam: Normal external nose present Mouth: moist mucous membranes Eyes Other: Artificial eye on left Neck Other: Thyroid nonpalpable Neck: Yes full ROM, Yes no lymphadenopathy and Yes supple Resp Effort & Inspection: normal respiratory effort and able to speak in complete sentences Auscultation: clear to auscultation bilaterally Cardio Rate: regular rate Rhythm: regular rhythm Heart sounds: S1 normal heart sound present and S2 normal heart sound present GI Palpation (GI): Soft to palpation, nontender and no masses Auscultation: normal bowel sounds Back/Spine/Pelvis Back: No back tenderness Skin General skin exam: no rashes or lesions noted Neuro General: patient oriented x3, gait normal, tone normal, moves all extremities, Normal light touch and pain sensation and no focal motor deficits Cranial nerves: Yes CN's II-XII intact bilaterally Cognition (Neuro): normal cognition Psych Mental Status: mental status grossly normal Speech and movement: Normal speech and movement present Affect: normal affect Results Reviewed Results Reviewed: RUN: 11/06/23 1209 PAGE 1 [facility] [address] [place] [id number] Clearing Hand: Quincy Lopez M.D. Specimen Inquiry Name: Radhika Curran Age/Sex: 77/F : 1945 Unit#: [id number] Attend Dr: Pina Wagner MD Re11/01/23 Status: DEP [facility]F [facility] Disch: SPEC : [id number] MOSHE: 11/01/23 STATUS: COMP REQ : [id number] RECD: 11/01/23-[address]: Pina Wagner MD COMP: 11/01/238 ENTERED: 11/01/[address]: ORDERED: AST, ALT, Lipid Panel, Free T4, TSH Test Result Flag Reference AST (GOT) 22 5-31 U/L ALT (GPT) 16 0-31 U/L Triglyceride 109 <150 mg/dL Desirable Triglyceride: less than 150 mg/dL Borderline High Triglyceride 150-199 mg/dL High Triglyceride: 200-499 mg/dL Very High Triglyceride: greater than or equal to 5OO mg/dL Cholesterol 175 <200 mg/dL Desirable Cholesterol: less than 200 mg/dL Borderline High Cholesterol: 200-239 mg/dL High Cholesterol: greater than 239 mg/dL LDL Calculated 78 <100 mg/dL Desirable LDL: less than 100 mg/dL Near Optimal/Above Optimal LDL: 110-129 mg/dL Borderline High LDL: 130-159 mg/dL High LDL: 160-189 mg/dL Very High LDL: greater than or equal to 190 mg/dL HDL 76 >40 mg/dL Desirable HDL: greater than 40 mg/dL Note: This HDL assay may give artificially low results in patients with liver disease. Free T4 1.05 0.71-1.85 ng/dL TSH 3rd Gen. 1.47 0.32-4.0 uIU/mL TSH 3rd Generation ([facility]) Assessment and Plan Assessment & Plan (1) Postmenopause: Code(s): Z78.0 - Asymptomatic menopausal state Plan: Due for repeat bone density scan, ordered. Patient stays active, takes adequate calcium from dietary sources and takes a multivitamin with vitamin-D include (2) Encounter for screening for osteoporosis: Code(s): Z13.820 - Encounter for screening for osteoporosis Plan: Bone density scan ordered (3) Dyslipidemia: Code(s): E78.5 - Hyperlipidemia, unspecified Plan: Reviewed recent fasting lipid profile with patient with levels within normal limits . Continue with simvastatin 20 mg at bedtime and Wittmann 3 fatty acid supplements daily , in addition to adherence to low-cholesterol diet and regular exercise, at least 30 minutes 3 to 4 times a week. Advised patient to make healthy food choices, eat more fruits, vegetables, whole grains, wild caught fish and low-fat dairy. Limit amount of meat and fried or fatty food products, as well as processed foods and fast foods. (4) Acquired hypothyroidism: Code(s): E03.9 - Hypothyroidism, unspecified Plan: Thyroid levels are within normal limits, continued on current dose of levothyroxine 50 mcg daily in a.m. Orders: Orders XR DEXA axial skeleton 11/06/23 Z13.820 - Encounter for screening for osteoporosis, Z78.0 - Asymptomatic menopausal state MM tomosynthesis screening BI 11/06/23 Z12.31 - Encounter for screening mammogram for malignant neoplasm of breast Coding Level of Care Code Est Pt Level 4 (35383) Diagnoses Postmenopause Z78.0 Encounter for screening for osteoporosis Z13.820 Dyslipidemia E78.5 Acquired hypothyroidism E03.9 Additional Codes REGINE-7 Assessment Billing - REGINE-7 Assessment Tool: REGINE-7 Assessment 18691 ([id number])
[2023-11-06 11:37] VITALS: BP 124/72; PULSE 59; O2SAT 98; BMI 27.5
== END 2023-11-06 15:33 | disposition home or self-care (01) ==
PROVIDERS: PCP Internal Medicine; Visit Provider Internal Medicine
DX: Z78.0 Asymptomatic menopausal state (principal); Z13.820 Encounter for screening for osteoporosis; E78.5 Hyperlipidemia, unspecified; E03.9 Hypothyroidism, unspecified
CPT/HCPCS: 99214

== ENCOUNTER 2024-06-13 11:05 | Outpatient (REF) | payer MEDICARE, OTHER, SELFPAY ==
--- NOTE | ~2024-06-13 | MM_ITS ---
EXAMINATION: MM SCREENING DIGITAL BREAST TOMOSYNTHESIS, BILATERAL CLINICAL INFORMATION: Screening. Asymptomatic. COMPARISON: Mammography: Comparison is made with available priors TECHNIQUE: Digital breast mammography with tomosynthesis is performed in both the craniocaudal and mediolateral oblique views along with computer-aided detection (CAD). FINDINGS: The breasts are heterogeneously dense, which may obscure small masses (ACR BI-RADS breast composition Category c). There are no significant masses, abnormal calcifications, or other abnormalities. MM/MM tomosynthesis screening BI IMPRESSION: No mammographic evidence of malignancy. ASSESSMENT: BI-RADS BI-RADS 1 - Negative RECOMMENDATION: Routine annual mammography screening. 1 year F/U This examination should not preclude the clinical evaluation of a suspicious palpable abnormality. This patient's information was entered into a reminder system with a target due date for their next mammogram. Electronically signed by: Tarah Cardona DO 06/24/2024 09:45 AM [facility]
--- NOTE | ~2024-06-13 | MM_ITS ---
EXAMINATION: BONE DENSITOMETRY CLINICAL INDICATION: Menopause. COMPARISON: Previous BD dated 12/21/2018 and baseline BD dated 06/04/2015. TECHNIQUE: Using a Razer DXA System (software version: 13.1) manufactured by [employer], dual-energy x-ray absorptiometry was performed of the lumbar spine and left hip. The images are of good technical quality. Summary results are attached. FINDINGS: LEFT FEMUR, NECK: Current: BMD 0.893 g/cm2, Z-score 1.2, T-score -1.0, normal. Prior: BMD 0.930 g/cm2. Baseline: BMD 0.960 g/cm2. LEFT FEMUR, TOTAL: Current: BMD 1.014 g/cm2, Z-score 2.1, T-score 0.1, normal, 2.2% decrease from previous, 5.0% decrease from baseline (<5% change is not significant). Prior: BMD 1.037 g/cm2. Baseline: BMD 1.067 g/cm2. AP SPINE L1-L3 (excluding L4): The data of L1-L4 has been changed to exclude the L4 vertebral body, because at this level may cause overestimation of lumbar spine density. Current: BMD 1.282 g/cm2, Z-score 2.9, T-score 0.9, normal, 0.9% increase from previous, 3.5% increase from baseline (<5% change is not significant). Prior: BMD 1.271 g/cm2. Baseline: BMD 1.239 g/cm2. IDENTIFIED RISK FACTORS: Menopause, height loss, history of fracture (adult), low calcium intake. HISTORY OF FRACTURE: Other. MEDICATIONS: Multivitamin, vitamin D. MM/XR DEXA axial skeleton IMPRESSION: 1. DIAGNOSIS: Normal bone density based on the lowest T-score value of -1.0 in the femoral neck applying World Health Organization criteria. 2. 10-YEAR FRACTURE RISK PREDICTION, FRAX: According to the guidelines, FRAX calculation should only be performed on patients in the osteopenia bone density category. Therefore, FRAX was not performed on this patient. 3. Treatment Recommendations: NOF guidelines recommend consideration for treatment in postmenopausal women and men age 50 and older presenting with the following: -A hip or vertebral (clinical or morphometric) fracture. -T-score less than or equal to -2.5 at the femoral neck or spine after appropriate evaluation to exclude secondary causes. -Low bone mass at the hip or spine and a 10-year fracture probability by FRAX of greater than or equal to 3% for hip fracture or greater than or equal to 20% for major osteoporotic fracture based on the [place] adapted WHO algorithm. 4. Other Recommendations: All treatment decisions require clinical judgment and consideration of individual patient factors, including patient preferences, comorbidities, previous drug use, risk factors not captured in the FRAX model (e.g. frailty, falls, vitamin D deficiency, increased bone turnover, interval significant decline in bone density) and possible under or overestimation of fracture risk by FRAX. FUTURE SCAN RECOMMENDATION: People with diagnosed cases of osteoporosis or at high risk for fracture should have regular bone mineral density tests. For patients eligible for Medicare, routine testing is allowed once every 2 years. The testing frequency can be increased to one year for patients who have rapidly progressing disease, those who are receiving or discontinuing medical therapy to restore bone mass, or have additional risk factors. Electronically signed by: Angelita Hunter MD 06/13/2024 04:56 PM [facility]
== END 2024-06-13 11:06 | disposition home or self-care (01) ==
LOC: HO.MAMMO 11:05
PROVIDERS: PCP Internal Medicine; Visit Provider Internal Medicine
DX: Z12.31 Encounter for screening mammogram for malignant neoplasm of breast (principal); Z13.820 Encounter for screening for osteoporosis; Z78.0 Asymptomatic menopausal state
CPT/HCPCS: 77063; 77067; 77080

== ENCOUNTER → 2024-06-13 11:15 | Outpatient (BNV) | payer MEDICARE, OTHER, SELFPAY | PROVIDERS: PCP Internal Medicine; Visit Provider Internal Medicine | DX: Z12.31 Encounter for screening mammogram for malignant neoplasm of breast (principal) | CPT/HCPCS: 77063; 77067 ==

== ENCOUNTER 2024-11-06 10:25 | Outpatient (REF) | payer MEDICARE, OTHER, SELFPAY ==
--- OUTSIDE RECORDS SUMMARY | 2024-11-06 12:12 | XMS_ITS | Patient Health Record ---
Author Organization [facility] Address [address] [place] [address] Care Team Providers Care Coffee Farmer Name Role Phone Bernard MACEDO, Pina Primary Care Provider Paul Calvin Unavailable [phone] Allergies No Known Allergies Reason For Referral No Information Medications Medication SIG (Take, Route, Frequency, Duration) Notes Start Date End Date Status Aspirin Adult Low Strength 81 MG 1 tablet Orally Once a day Active Multivitamin Adult 1 1 tablet Orally onc e a day Active Folic Acid 400 MCG 1 tablet Orally Once a day Active Multivitamin - 1 tablet Orally Once a day for 30 day(s) Active Simvastatin 20 MG 1 tablet in the even ing Orally Once a day Active Levothyroxine Sodium 50 MCG 1 tablet Ora lly Once a day Active Glucosamine 500 MG 1 capsule with a justyna l Orally Once a day Active Fish Oil 1000 MG 1 capsule Orally Onc e a day Active Vitamin B12 Active Immunizations Vaccine Route Administration Date Status Comme nts Flu vaccine no Preserv 3 and > Unknown 04/13/2016 Admin istered Influenza Unknown 04/20/2021 Administered Problems Problem Type SNOMED Code ICD Code Onset Dates Problem Status W/U Status Risk Notes Problem 177328686 Encounter for screening for malignant neoplasm of colon (Z12.11) Active confirmed Problem 430175697 History of adenomatous polyp of colon (Z86.010) Active confirmed Problem Screening for malignant neoplasm of rectum (567999467) Encounter for screening for malignant neoplasm of rectum (Z12.12) Active confirmed Problem History of polyp of colon (548405913) History of colon polyps (Z86.010) Active confirmed Problem 896344798 Family history o f colon cancer (Z80.0) Active confirmed Problem 874817212 Long-term use of aspirin therapy (Z79.82) Active confirmed Problem Diverticulosis of colon (845246657) Diverticulosis of colon (K57.30) Active confirmed Plan Of Treatment Future Test Test Name Order Date COLONOSCOPY 05/05/2016 COLONOSCOPY 01/04/2022 Insurance Providers Payer Name Payer Address Payer Phone Subscriber Number Group Number Insured Name Patient Relationship to Insured Coverage Start Date Coverage End Date MEDICARE OF [place] [address] [place] [id number] HERMILO SNOW Self - patient is the insured [facility] [employer] [address] [place] [phone] [id number] HERMILO SNOW Self - patient is the insured Medical (General) History Medical History History ICD Code Colonoscopy 02-02-2011--small tubular adenoma removed; colonoscopies in 1996, 1999, and 2005--tubular adenomas removed; diffuse diverticulosis 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
[2024-11-06 13:29] LABS: Hematocrit 40.9 % (37.0-47.0); Hemoglobin 13.4 g/dl (12.0-16.0)
[2024-11-06 14:11] LABS: Alanine Aminotransferase 19 U/L (0-31); Anion Gap 11 (12-20); Aspartate Amino Transferase 28 U/L (5-31); Blood Urea Nitrogen 10 mg/dL (9-16); Calcium 9.5 mg/dL (8.4-10.2); Carbon Dioxide 27 mmol/L (22-29); Chloride 108 mmol/L (96-108); Cholesterol 171 mg/dL (<200); Estimated Glomerular Filt Rate > 60; Glucose Fasting 93 mg/dL (60-99); HDL Cholesterol 84 mg/dL (>40); LDL Cholesterol Calculated 69 mg/dL (<100); Potassium 4.2 mmol/L (3.3-5.1); Sodium 142 mmol/L (135-145); Triglycerides 90 mg/dL (<150)
[2024-11-06 14:12] LABS: Free T4 (Free Thyroxine) 1.08 ng/dL (0.71-1.85); Thyroid Stimulating Hormone 0.74 uIU/mL (0.32-4.0); Vitamin D 25-OH Total 85.5 ng/mL (>30)
== END 2024-11-06 10:26 | disposition home or self-care (01) ==
LOC: HO.HMGCLDS 10:25
PROVIDERS: PCP Internal Medicine; Visit Provider Internal Medicine
DX: J45.20 Mild intermittent asthma, uncomplicated (principal); M17.0 Bilateral primary osteoarthritis of knee; D12.6 Benign neoplasm of colon, unspecified; E78.5 Hyperlipidemia, unspecified; E03.9 Hypothyroidism, unspecified; Z78.0 Asymptomatic menopausal state
CPT/HCPCS: 36415; 80048; 80061; 82306; 84439; 84443; 84450; 84460; 85014; 85018

== ENCOUNTER 2024-11-11 08:29 | Outpatient (AMB) | payer MEDICARE, OTHER, SELFPAY ==
--- NOTE | 2024-11-11 08:50 | A.OFFPC_ITS ---
Vital Signs 11/11/24 09:00 Height 4 ft 10 in Weight 132 lb BMI 27.6 BP 118/82 Blood Pressure Location Rt brachial Position Sitting Respiration 16 Pulse 62 Pulse Source Pulse Oximeter Temp 97.8 F Temp Source Oral Pulse Oximetry (%) 98 Oxygen Delivery Method Room Air Intake Visit Reasons: Annual PE Intake Note: Pt is here today for her PE: Last mammogram 06/04/24, bone density scan 06/13/24, colonoscopy 08/05/16 Allergies No Known Allergies Allergy (Mild, Verified 11/11/24 09:25) N/A Medication List - Last Reconciled 11/11/24 by Pina Wagner MD glucosamine HCl 500 mg PO DAILY levothyroxine 50 mcg PO QAM multivitamin 1 tab PO DAILY omega-3 fatty acids (Fish Oil Concentrate) 1,000 mg PO DAILY simvastatin 20 mg PO BEDTIME Tobacco use date assessed: 11/11/24 Fall risk assessment: No Falls in past year Last assessed Fall Risk: 11/11/24 Dental Screening Dental Screen Date: 11/11/24 Did you have a dental visit in the last 12 months?: No Did you have a dental problem in the last 6 months where you did not have access to dental care?: No Was dental information given to patient?: Patient has dentist HPI Annual PE HPI Details 78-year-old lady with history of acquire d hypothyroidism, and dyslipidemia, here today for her physical exam. She has been feeling well, compliant with taking her medications, but having a lot of stress at home due to been illness. She had recent fasting labs done which showed normal fasting glucose, electrolytes, renal function, lipids, thyroid levels and no anemia noted. She is up-to-date with her screening mammogram, and bone density scan done 2023, both of which came back with normal findings and had a colonoscopy done in 2017 which showed normal results, no longer needs to get another scre ening done. 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, bilateral Tubular adenoma of colon Postmenopause Dyslipidemia Acquired hypothyroidism Surgical History History of colonoscopy History of surgical removal of ganglion cyst Hx of enucleation of left eyeball History of meniscectomy of right knee History of repair of rectocele History of right breast biopsy Hx of tonsillectomy History of appendectomy Family History Father Coronary artery disease Brother Colon cancer Social History Housing: House Alcohol intake: current Alcohol intake frequency: 3 or more drinks per day Patient Tobacco Use Status: Former Tobacco user Years Smoked: 20 years e-Cigarette/Vaping Use: Never Used Current occupational status: retired Cognitive needs: No Hearing needs: No Vision needs: Yes Questionnaire PHQ-9 Over the last 2 weeks, how often have you been bothered by any of the following problems? 1. Little interest or pleasure in doing things: not at all 2. Feeling down, depressed, or hopeless: not at all 3. Trouble falling or staying asleep, or sleeping too much: several days 4. Feeling tired or having little energy: not at all 5. Poor appetite or overeating: not at all 6. Feeling bad about yourself - or that you are a failure or have let yourself or your family down: not at all 7. Trouble concentrating on things, such as reading the newspaper or watching television: several days 8. Moving or speaking so slowly that other people could have noticed. Or the opposite - being so fidgety or restless that you have been moving around a lot more than usual: not at all 9. Thoughts that you would be better off or of hurting yourself in some way: not at all Total score: 2 Depression Screening Interpretation: Negative Depression Screening Done: Yes 08430 - PHQ-9 Billing: Yes Source: Developed by Drs. Paul Mariee, Mary Lou Harper, Yong Perez and colleagues, with an educational martha from [employer]. Thrive Questionnaire Date Thrive assessed: 11/11/24 I am a: Patient What is your living situation today?: I have a steady place to live Within the past 12 months, did the food you bought not last and you didn't have the money to get more?: Never true Within the past 12 months, did you worry whether your food would run out before you got money to buy more?: Never true Do you have trouble paying for medicines?: No Do you have trouble getting transportation to medical appointments?: No Do you have trouble paying your heating and electricity bill?: No Do you have trouble taking care of your child, family member or friend?: No Do you have trouble with day-to-day activities such as bathing, preparing meals, shopping, managing finances, etc.?: No Are you currently unemployed and looking for a job?: No Are you interested in more education?: No Please select the resources that you would like help with: None Currently or been in a relationship where the following occur: No concerns reported THRIVE Score: 0 AUDIT C Alcohol Use Questionnaire (AUDIT-C) 1. How often do you have a drink containing alcohol?: 2-3 times a week 2. How many drinks containing alcohol do you have on a typical day when you are drinking?: 1 or 2 3. How often do you have six or more drinks on one occasion?: Never Total Score: 3 REGINE-7 AMB Questionnaire REGINE-7 Date REGINE - 7 assessed: 11/11/24 Feeling nervous, anxious, or on edge: 1 = Several days Not being able to stop or control worryin = Several days Worrying too much about different things: 1 = Several days Trouble relaxin = Several days Being so restless that it is hard to sit still: 1 = Several days Becoming easily annoyed or irritable: 0 = Not at all Feeling afraid as if something awful might happen: 0 = Not at all Total REGINE-7 score (0-4 normal; 5-9 mild; 10-14 moderate; 15-21 severe): 5 Source: Developed by Drs. Paul Mariee, Mary Lou Harper, Yong Perez and colleagues, with an educational martha from [employer]. REGINE-7 Assessment Billing REGINE-7 Assessment Tool: REGINE-7 Assessment 94132 Review of Systems Const Denies fatigue, Denies fever(s), Denies frequent falls and Denies weakness Eyes Denies change in vision ENT Reports no additional complaints Card Reports no additional complaints, Denies chest pain and Denies dyspnea Resp Denies cough and Denies dyspnea GI Denies abdominal pain, Denies melena, Denies bloating, Denies hematochezia, Denies change in bowel habits and Denies heartburn Denies urinary frequency, Denies difficulty voiding and Denies dysuria Musc Reports as per HPI Skin/Breast Reports as per HPI, Denies breast pain and Denies breast mass Neuro Reports no additional complaints, Denies frequent falls and Denies weakness Psych Reports no additional complaints Endo Reports no additional complaints and Denies fatigue Hemanth/Lymph Reports no additional complaints Aller/Immun Reports no additional complaints Physical exam (Primary Care) Vital Signs: Last Vital Signs Temp 97.8 F 11/11/24 09:00 Pulse 62 11/11/24 09:00 Resp 16 11/11/24 09:00 BP 118/82 11/11/24 09:00 Pulse Ox 98 11/11/24 09:00 Oxygen Delivery Method Room Air 11/11/24 09:00 BMI result Body Mass Index 27.6 Tobacco/Smoking Status: Tobacco use Status Tobacco use date assessed 11/11/24 11/11/24 08:52 Patient Tobacco Use Status Former Tobacco user 11/11/24 08:52 e-Cigarette/Vaping Use Never Used 11/11/24 08:52 PHQ-9: PHQ-9 Score PHQ-9: Total score 3 11/11/24 09:24 Depression Screening Interpretation: Negative Thrive Assessment: Date of Thrive Assessment Date Thrive assessed 11/11/24 11/11/24 08:52 Currently or been in a relationship where the following occur: No concerns reported Const General: comfortable, no acute distress and alert Orientation/consciousness: patient oriented x3 HENMT Ears: external ears normal General nose exam: Normal external nose present Mouth: moist mucous membranes Eyes Other: Artificial eye on left Neck Other: Thyroid nonpalpable Neck: Yes full ROM, Yes no lymphadenopathy and Yes supple Resp Effort & Inspection: normal respiratory effort and able to speak in complete sentences Auscultation: clear to auscultation bilaterally Cardio Rate: regular rate Rhythm: regular rhythm Heart sounds: S1 normal heart sound present and S2 normal heart sound present GI Palpation (GI): Soft to palpation, nontender and no masses Auscultation: normal bowel sounds Back/Spine/Pelvis Back: No back tenderness Skin General skin exam: no rashes or lesions noted Neuro General: patient oriented x3, gait normal, tone normal, moves all extremities, Normal light touch and pain sensation and no focal motor deficits Cranial nerves: Yes CN's II-XII intact bilaterally Cognition (Neuro): normal cognition Extrem General: Yes full ROM, Yes no joint enlargement and Yes normal gait Psych Mental Status: mental status grossly normal Speech and movement: Normal speech and movement present Affect: normal affect Results Reviewed Results Reviewed: Name: Radhika Curran Age/Sex: 78/F : 1945 Unit#: [id number] Attend Dr: Pina Wagner MD Re11/06/24 Status: DEP [facility] Disch: SPEC : [id number] MOSHE: 11/06/24 STATUS: COMP REQ : [id number] RECD: 11/06/[address]: Pina Wagner MD COMP: 11/06/24 ENTERED: 11/06/[address]: ORDERED: Met Prof Fast, AST, ALT, Lipid Panel, Vitamin D 25-OH, Free T4, TSH Test Result Flag Reference Sodium 142 135-145 mmol/L Potassium 4.2 3.3-5.1 mmol/L CL 108 96-108 mmol/L CO2 27 22-29 mmol/L Gap 11 L 12-20 BUN 10 9-16 mg/dL Creat 0.80 0.5-1.4 mg/dL eGFR > 60 Chronic Kidney Disease: Estimated GFR < 60 mL/min/1.73m2 Severe Kidney Disease: Estimated GFR < 15 mL/min/1.73m2 FBS 93 60-99 mg/dL CA 9.5 8.4-10.2 mg/dL AST (GOT) 28 5-31 U/L ALT (GPT) 19 0-31 U/L Triglyceride 90 <150 mg/dL Desirable Triglyceride: less than 150 mg/dL Borderline High Triglyceride 150-199 mg/dL High Triglyceride: 200-499 mg/dL Very High Triglyceride: greater than or equal to 5OO mg/dL Cholesterol 171 <200 mg/dL Desirable Cholesterol: less than 200 mg/dL Borderline High Cholesterol: 200-239 mg/dL High Cholesterol: greater than 239 mg/dL LDL Calculated 69 <100 mg/dL Desirable LDL: less than 100 mg/dL Near Optimal/Above Optimal LDL: 110-129 mg/dL Borderline High LDL: 130-159 mg/dL High LDL: 160-189 mg/dL Very High LDL: greater than or equal to 190 mg/dL HDL 84 >40 mg/dL Desirable HDL: greater than 40 mg/dL Note: This HDL assay may give artificially low results in patients with liver disease. Vitamin D 25-OH 85.5 >30 ng/mL Health Based Reference Values* < 20 ng/mL Deficient 20-30 ng/mL Insufficient > 30 ng/mL Sufficient *Myranda BOJORQUEZ. N Engl J Med. 2007;357:266-280 There is no well-established upper level of normal vitamin D levels. Some laboratories use 50 ng/mL as an upper limit of normal. However, toxicity is patient-dependent and may occur at any level. Careful correlation with the patient's presentation is necessary and, if there is concern for vitamin D toxicity, treatment should be considered irrespective of the serum level. Care must be taken in interpreting Vitamin D results from different laboratories and methodologies. Published data demonstrated that results from patients undergoing hemodialysis may show a negative bias when tested with various automated 25-OH vitamin D assays when compared to LC-MS/MS. When testing samples from patients whose predominant form of Vitamin D is Vitamin D2, such as patients receiving Vitamin D2 supplementation, results that are subtherapeutic should be confirmed with another method such as LC-MS/MS. Free T4 1.08 0.71-1.85 ng/dL TSH 3rd Gen. 0.74 0.32-4.0 uIU/mL Laboratory Tests 11/22/19 04/12/21 11/17/21 11:40 09:42 11:17 Hgb Hct Sodium 142 Potassium 4.4 Chloride 106 Carbon Dioxide 28 Bicarbonate 27 Anion Gap 12 BUN 12 Creatinine 0.84 Fasting Glucose 99 Calcium 9.9 D AST 23 ALT 15 Triglycerides 104 Cholesterol 181 LDL Cholesterol, Calc 78 HDL Cholesterol 83 Vitamin B12 566 25-OH Vitamin D Total 64.0 TSH 1.20 Free T4 1.04 11/06/24 10:28 Hgb 13.4 Hct 40.9 Sodium Potassium Chloride Carbon Dioxide Bicarbonate Anion Gap BUN Creatinine Fasting Glucose Calcium AST ALT Triglycerides Cholesterol LDL Cholesterol, Calc HDL Cholesterol Vitamin B12 25-OH Vitamin D Total TSH Free T4 Coding Level of Care Code Est Pt Prev Care >65y(91362) Diagnoses Acquired hypothyroidism E03.9 Dyslipidemia E78.5 Annual visit for general adult medical examination with abnormal findings Z00.01 Additional Codes REGINE-7 Assessment Billing - REGINE-7 Assessment Tool: REGINE-7 Assessment 74455 ([id number]) PHQ-9 - 86991 - PHQ-9 Billing: Yes ([id number]) Assessment & Plan Assessment & Plan (1) Acquired hypothyroidism: Code(s): E03.9 - Hypothyroidism, unspecified Category: Medical Plan: Continued on levothyroxine 50 mcg daily in a.m. (2) Dyslipidemia: Code(s): E78.5 - Hyperlipidemia, unspecified Category: Medical Plan: Continue with l simvastatin 20 mg at bedtime together with reminded 3 fatty acid supplements daily (3) Annual visit for general adult medical examination with abnormal findings: Code(s): Z00.01 - Encounter for general adult medical examination with abnormal findings Plan: Recent fasting lab results discussed with patient. Continue with regular dental visit every 6 months and regular eye exams, at least every 2 years. Take adequate calcium in diet and vitamin-D 3 at 2000 IU per cap once a day, in addition to weight-bearing exercises to help maintain good muscle tone and weight control. Up-to-date with her screening mammogram and bone density scan, no longer gets colonoscopy screenings. Up-to-date with her vaccines Orders: Orders Thyroid Stimulating Hormone 03/24/25 E03.9 - Hypothyroidism, unspecified, E78.5 - Hyperlipidemia, unspecified, Z78.0 - Asymptomatic menopausal state Free T4 (Free Thyroxine) 03/24/25 E03.9 - Hypothyroidism, unspecified, E78.5 - Hyperlipidemia, unspecified, Z78.0 - Asymptomatic menopausal state Lipid Panel 03/24/25 E03.9 - Hypothyroidism, unspecified, E78.5 - Hyperlipidemia, unspecified, Z78.0 - Asymptomatic menopausal state Aspartate Amino Transferase 03/24/25 E03.9 - Hypothyroidism, unspecified, E78.5 - Hyperlipidemia, unspecified, Z78.0 - Asymptomatic menopausal state Alanine Aminotransferase 03/24/25 E03.9 - Hypothyroidism, unspecified, E78.5 - Hyperlipidemia, unspecified, Z78.0 - Asymptomatic menopausal state Basic Metabolic Panel Fasting 03/24/25 E03.9 - Hypothyroidism, unspecified, E78.5 - Hyperlipidemia, unspecified, Z78.0 - Asymptomatic menopausal state Vitamin D 25-OH Total 03/24/25 E03.9 - Hypothyroidism, unspecified, E78.5 - Hyperlipidemia, unspecified, Z78.0 - Asymptomatic menopausal state Medications: Refilled simvastatin 20 mg PO BEDTIME 90 tabs 4RF
[2024-11-11 09:00] VITALS: BP 118/82; PULSE 62; RESP 16; TEMP 36.6; O2SAT 98; BMI 27.6
== END 2024-11-11 10:01 | disposition home or self-care (01) ==
LOC: HO.HMCC 08:30
PROVIDERS: PCP Internal Medicine; Visit Provider Internal Medicine
DX: Z00.00 Encounter for general adult medical examination without abnormal findings (principal); E03.9 Hypothyroidism, unspecified; E78.5 Hyperlipidemia, unspecified

== ENCOUNTER → 2024-11-11 08:29 | Outpatient (BNVA) | payer MEDICARE, OTHER, SELFPAY | PROVIDERS: PCP Internal Medicine; Visit Provider Internal Medicine | DX: Z00.01 Encounter for general adult medical examination with abnormal findings (principal); E78.5 Hyperlipidemia, unspecified; E03.9 Hypothyroidism, unspecified | CPT/HCPCS: 96127; 99397 ==

== ENCOUNTER 2025-04-09 10:02 | Outpatient (REF) | payer MEDICARE, OTHER, SELFPAY ==
--- OUTSIDE RECORDS SUMMARY | 2025-04-09 12:07 | XMS_ITS | Patient Health Record ---
Author Organization [facility] Sarina wilfredo [place] Address [address] [place] [address] Care Team Providers Care Biometrics Instructor Name Role Phone Bernard MACEDO, Pina John Primary Care Provider Un available Black, Krissy Unavailable [phone] Allergies No Known Allergies Results Component Value Reference Range Notes X ray : Foot, left 3V Reviewed date:03/17/2025 12:21:25 PM Interpretation:See Examination above Performing Lab: Notes/Report: See Examination above X ray : Foot, right 3V Reviewed date:03/17/2025 12:21:15 PM Interpretation:See Examination above Performing Lab: Notes/Report: See Examination above Reason For Referral No Information Medications Medication SIG (Take, Route, Frequency, Duration) Notes Start Date End Date Status Levothyroxine Sodium 50 MCG Oral; Duration: 90 Days Active Simvastatin 20 MG Oral; Duration: 90 Days Active Immunizations Vaccine Route Administration Date Status Comme nts Influenza Unknown 03/24/2024 Administered Social History Tobacco Use: Social History Observation Description Date Details (start date - stop date) Never Smoker NA - NA Tobacco use other than smoking: Question Answer Notes Are you an other tobacco user? No Tobacco Control (Standard) Question Answer Notes Tobacco use: Nonsmoker Additional Findings: Tobacco non-user Current no nsmoker AUDIT-C (Standard) Question Answer Notes Did you have a drink containing alcohol in the p ast year? 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.072) Active confirmed Problem Osteoarthritis of midtarsal joint of right foot (3153594632765296 ) Osteoarthritis of midtarsal joint of right foot (M19.071) Active confirmed Vital Signs Blood pressure diastolic 79 mm Hg 03/17/2025 Height 4 ft 10 in in 03/17/2025 Blood pressure systolic 122 mm Hg 03/17/2025 Weight 130 lbs lbs 03/17/2025 BMI 27.17 kg/m2 03/17/2025 Procedures Procedure Date Ordered Date [place] [address] NAIL, 1-5 03/17/2025 N/A Encounters Encounter Location Date Provider Diagnosis [facility] [address] [place] [address] 03/17/2025 Krissy Black Pain in right toe(s) M79.674 ; Other hammer toe(s) (acquired), right foot M20.41 ; Arthritis of joint of lesser toe, right M19.071 ; Subluxation of metatarsophalangeal joint of toe, initial encounter S93.149A ; Pain in left foot M79.672 ; Pain in left ankle and joints of left foot M25.572 ; Bursitis of left foot M77.52 ; Osteoarthritis of midtarsal joint of left foot M19.072 ; Pain in right foot M79.671 ; Pain in right ankle and joints of right foot M25.571 ; Bursitis of right foot M77.51 ; Osteoarthritis of midtarsal joint of right foot M19.071 ; Onychomycosis B35.1 and Pain in left toe(s) M79.675 Assessments Encounter Date Diagnosis (ICD Code) Assessment Notes Treatment Notes Treatment Clinical Notes Section Notes 03/17/2025 Pain in right toe(s) (ICD-10 - M79.674) 03/17/2025 Other hammer toe(s) (acquired), right foot (ICD-10 - M20.41) 03/17/2025 Arthritis of joint o f lesser toe, right (ICD-10 - M19.071) 03/17/2025 Subluxation of metatarsophalangeal joint of toe, initial encounter (ICD-10 - S93.149A) 03/17/2025 Pain in left foot (ICD-10 - M79.672) 03/17/2025 Pain in left ankle a nd joints of left foot (ICD-10 - M25.572) 03/17/2025 Bursitis of left debby t (ICD-10 - M77.52) 03/17/2025 Osteoarthritis of midtarsal joint of left foot (ICD-10 - M19.072) 03/17/2025 Pain in right foot (ICD-10 - M79.671) 03/17/2025 Pain in right ankle and joints of right foot (ICD-10 - M25.571) 03/17/2025 Bursitis of right fo ot (ICD-10 - M77.51) 03/17/2025 Osteoarthritis of midtarsal joint of right foot (ICD-10 - M19.071) 03/17/2025 Onychomycosis (ICD-1 0 - B35.1) 03/17/2025 Pain in left toe(s) (ICD-10 - M79.675) Plan Of Treatment Pending Test Test Name Order Date 43672-ALMIYAU NAIL, 1-5 03/17/2025 Insurance Providers Payer Name Payer Address Payer Phone Subscriber Number Group Number Insured Name Patient Relationship to Insured Coverage Start Date Coverage End Date Medicare National [employer] [address] [place] [address] [id number] Radhika Gould Self - patient is the insured [address] [employer] [address] [place] [address] [id number] Radhika Gould Self - patient is the insured 5 Medical (General) History Medical History History ICD Code Anemia Arthritis Back,Hip,and Knee pain Broken bones CAD (Cholesterol) Cancer Cataracts Diverticulosis Gout raynauds disease thyroid Measles Mumps Chicken pox Transfusions Surgical History Surgery Date(Month/Year) ganglion cyst right ankle 2000 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
--- OUTSIDE RECORDS SUMMARY | 2025-04-09 12:07 | XMS_ITS | Patient Health Record ---
Author Organization [facility] Address [address] [place] [address] Care Team Providers Care Post Graduate Intern Name Role Phone Bernard MACEDO, Pina Primary Care Provider Paul Calvin Unavailable [phone] Allergies No Known Allergies Reason For Referral [...] Problem Status W/U Status Risk Notes Problem [id number] Encounter for screening for malignant neoplasm of colon (Z12.11) Active confirmed Problem 551334847 History of adenomatous polyp of colon (Z86.010) Active confirmed Problem Screening for malignant neoplasm of rectum (860418886) Encounter for screening for malignant neoplasm of rectum (Z12.12) Active confirmed Problem History of polyp of colon (situation) (072513323) History of colon polyps (Z86.010) Active confirmed Problem 940742548 Family history o f colon cancer (Z80.0) Active confirmed Problem 978919792 Long-term use of aspirin therapy (Z79.82) Active confirmed Problem Diverticulosis of colon (657965290) Diverticulosis of colon (K57.30) Active confirmed Plan Of Treatment Future Test Test Name Order Date COLONOSCOPY 05/05/2016 COLONOSCOPY 01/04/2022 Insurance Providers Payer Name Payer Address Payer Phone Subscriber Number Group Number Insured Name Patient Relationship to Insured Coverage Start Date Coverage End Date MEDICARE OF [place] [address] [place] [address] [phone] [id number] HERMILO SNOW Self - patient is the insured [facility] [address] [place] [address] [phone] [id number] HERMILO SNOW Self - patient is the insured Medical (General) History Medical History History ICD Code Colonoscopy 02-02-2011--small tubular adenoma removed; colonoscopies in 1996, 1999, and 2005--tubular adenomas removed; diffuse diverticulosis 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
[2025-04-09 17:10] LABS: Alanine Aminotransferase 13 U/L (0-31); Anion Gap 13 (12-20); Aspartate Amino Transferase 28 U/L (5-31); Blood Urea Nitrogen 12 mg/dL (9-16); Calcium 9.2 mg/dL (8.4-10.2); Carbon Dioxide 28 mmol/L (22-29); Chloride 105 mmol/L (96-108); Cholesterol 165 mg/dL (<200); Estimated Glomerular Filt Rate > 60; HDL Cholesterol 81 mg/dL (>40); Potassium 4.1 mmol/L (3.3-5.1); Sodium 142 mmol/L (135-145); Triglycerides 79 mg/dL (<150)
[2025-04-09 17:29] LABS: Free T4 (Free Thyroxine) 1.08 ng/dL (0.71-1.85); Thyroid Stimulating Hormone 1.22 uIU/mL (0.32-4.0)
== END 2025-04-09 10:03 | disposition home or self-care (01) ==
LOC: HO.HMGCLDS 10:02
PROVIDERS: PCP Internal Medicine; Visit Provider Internal Medicine
DX: E78.5 Hyperlipidemia, unspecified (principal); E03.9 Hypothyroidism, unspecified; Z78.0 Asymptomatic menopausal state
CPT/HCPCS: 36415; 80048; 80061; 82306; 84439; 84443; 84450; 84460

== ENCOUNTER 2025-04-15 09:22 | Outpatient (AMB) | payer MEDICARE, OTHER, SELFPAY ==
[2025-04-15 09:36] VITALS: BP 102/60; PULSE 64; RESP 15; TEMP 36.4; O2SAT 98; BMI 26.5
--- NOTE | 2025-04-15 09:36 | MHC.PC.OV ---
Vital Signs 04/15/25 09:36 Height 4 ft 10 in Weight 127 lb BMI 26.5 BP 102/60 Blood Pressure Location Rt brachial Position Sitting Respiration 15 Pulse 64 Pulse Source Pulse Oximeter Temp 97.6 F Temp Source Oral Pulse Oximetry (%) 98 Oxygen Delivery Method Room Air Intake Visit Reasons: 5m follow up Intake Note: Pt is here today for her 5mo. f/u Allergies No Known Allergies Allergy (Mild, Verified 04/20/25 22:48) N/A Medication List - Last Reconciled 04/20/25 by Pina Wagner MD glucosamine HCl 500 mg PO DAILY levothyroxine 50 mcg PO QAM multivitamin 1 tab PO DAILY omega-3 fatty acids (Fish Oil Concentrate) 1,000 mg PO DAILY simvastatin 20 mg PO BEDTIME Tobacco use date assessed: 04/15/25 Fall risk assessment: 1 Fall in past year Last assessed Fall Risk: 04/15/25 Dental Screening Dental Screen Date: 04/15/25 Did you have a dental visit in the last 12 months?: Yes Did you have a dental problem in the last 6 months where you did not have access to dental care?: Yes Was dental information given to patient?: Patient has dentist HPI 5m follow up HPI Details The patient is a 79-year-old female presenting with postmenopausal bleeding and dizziness. The postmenopausal bleeding occurred approximately two to three weeks ago while the patient was in the shower, lasting for a minute or two with bright red blood noted coming from vaginal area. The patient confirmed it was vaginal bleeding and not hemorrhoidal, and there have been no subsequent episodes. She has no history of abnormal Pap smears and denies any pain associated with the bleeding. The patient reports dizziness, particularly when bending down and standing up quickly, which is associated with her low blood pressure, recorded at 102/60 mmHg. She experiences a buzzing sensation in her ears accompanying above symptoms Patient is also here for follow-up on her lipids and thyroid levels. Currently taking only lovastatin 20 mg at bedtime and levothyroxine 50 mcg daily in a.m.. Together with [place] 3 fatty acid supplements. 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, bilateral Tubular adenoma of colon Postmenopause Dyslipidemia Acquired hypothyroidism Surgical History History of colonoscopy History of surgical removal of ganglion cyst Hx of enucleation of left eyeball History of meniscectomy of right knee History of repair of rectocele History of right breast biopsy Hx of tonsillectomy History of appendectomy Family History Father Coronary artery disease Brother Colon cancer Social History Housing: House Alcohol intake: current Alcohol intake frequency: 3 or more drinks per day Patient Tobacco Use Status: Former Tobacco user Years Smoked: 20 years e-Cigarette/Vaping Use: Never Used Current occupational status: retired Cognitive needs: No Hearing needs: No Vision needs: Yes Questionnaire PHQ-9 Over the last 2 weeks, how often have you been bothered by any of the following problems? 1. Little interest or pleasure in doing things: not at all 2. Feeling down, depressed, or hopeless: not at all 3. Trouble falling or staying asleep, or sleeping too much: several days 4. Feeling tired or having little energy: not at all 5. Poor appetite or overeating: not at all 6. Feeling bad about yourself - or that you are a failure or have let yourself or your family down: not at all 7. Trouble concentrating on things, such as reading the newspaper or watching television: several days 8. Moving or speaking so slowly that other people could have noticed. Or the opposite - being so fidgety or restless that you have been moving around a lot more than usual: not at all 9. Thoughts that you would be better off or of hurting yourself in some way: not at all Total score: 2 Depression Screening Interpretation: Negative Depression Screening Done: Yes Source: Developed by Drs. Paul Mariee, Mary Lou Harper, Yong Perez and colleagues, with an educational martha from [employer]. Thrive Questionnaire Date Thrive assessed: 04/21/25 I am a: Patient What is your living situation today?: I have a steady place to live Within the past 12 months, did the food you bought not last and you didn't have the money to get more?: Never true Within the past 12 months, did you worry whether your food would run out before you got money to buy more?: Never true Do you have trouble paying for medicines?: No Do you have trouble getting transportation to medical appointments?: No Do you have trouble paying your heating and electricity bill?: No Do you have trouble taking care of your child, family member or friend?: No Do you have trouble with day-to-day activities such as bathing, preparing meals, shopping, managing finances, etc.?: No Are you currently unemployed and looking for a job?: No Are you interested in more education?: No Please select the resources that you would like help with: None Currently or been in a relationship where the following occur: No concerns reported THRIVE Score: 0 AUDIT C Alcohol Use Questionnaire (AUDIT-C) 1. How often do you have a drink containing alcohol?: 2-3 times a week 2. How many drinks containing alcohol do you have on a typical day when you are drinking?: 1 or 2 3. How often do you have six or more drinks on one occasion?: Never Total Score: 3 REGINE-7 AMB Questionnaire REIGNE-7 Date REGINE - 7 assessed: 11/11/24 Feeling nervous, anxious, or on edge: 1 = Several days Not being able to stop or control worryin = Several days Worrying too much about different things: 1 = Several days Trouble relaxin = Several days Being so restless that it is hard to sit still: 1 = Several days Becoming easily annoyed or irritable: 0 = Not at all Feeling afraid as if something awful might happen: 0 = Not at all Total REGINE-7 score (0-4 normal; 5-9 mild; 10-14 moderate; 15-21 severe): 5 Source: Developed by Drs. Paul Mariee, Mary Lou Harper, Yong Perez and colleagues, with an educational martha from [employer] Review of Systems Const All systems reviewed & are unremarkable except as noted in HPI and below Physical exam (Primary Care) Vital Signs: Last Vital Signs Temp 97.6 F 04/15/25 09:36 Pulse 64 04/15/25 09:36 Resp 15 04/15/25 09:36 BP 102/60 04/15/25 09:36 Pulse Ox 98 04/15/25 09:36 Oxygen Delivery Method Room Air 04/15/25 09:36 BMI result Body Mass Index 26.5 Tobacco/Smoking Status: Tobacco use Status Tobacco use date assessed 04/15/25 04/15/25 09:40 Patient Tobacco Use Status Former Tobacco user 04/15/25 09:40 e-Cigarette/Vaping Use Never Used 04/15/25 09:40 PHQ-9: PHQ-9 Score PHQ-9: Total score 2 04/15/25 09:55 Depression Screening Interpretation: Negative Thrive Assessment: Date of Thrive Assessment Date Thrive assessed 11/11/24 04/15/25 09:40 Currently or been in a relationship where the following occur: No concerns reported Const General: no acute distress and alert Orientation/consciousness: patient oriented x3 HENMT Ears: external ears normal General nose exam: Normal external nose present Mouth: moist mucous membranes Eyes Other: Artificial eye on left Neck Other: Thyroid nonpalpable Neck: Yes full ROM, Yes no lymphadenopathy and Yes supple Resp Effort & Inspection: normal respiratory effort and able to speak in complete sentences Auscultation: clear to auscultation bilaterally Cardio Rate: regular rate Rhythm: regular rhythm Heart sounds: S1 normal heart sound present and S2 normal heart sound present GI Palpation (GI): Soft to palpation, nontender and no masses Auscultation: normal bowel sounds External Female Exam: normal external appearance Speculum Exam - Vagina: vagina atrophic and No vaginal bleeding OB/external & speculum: No vaginal bleeding Back/Spine/Pelvis Back: No back tenderness Skin General skin exam: no rashes or lesions noted Neuro General: patient oriented x3, gait normal, tone normal, moves all extremities, Normal light touch and pain sensation and no focal motor deficits Cranial nerves: Yes CN's II-XII intact bilaterally Cognition (Neuro): normal cognition Extrem General: Yes full ROM, Yes no joint enlargement and Yes normal gait Results Reviewed Results Reviewed: Name: Radhika Curran Age/Sex: 79/F : 1945 Unit#: [id number] Attend Dr: Pina Wagner MD Re04/09/25 Status: DEP REF Location: [facility] Disch: SPEC : [id number] MOSHE: 04/09/25-1409 STATUS: COMP REQ : [id number] RECD: 04/09/25-[address]: Pina Wagner MD COMP: 04/09/25-1728 ENTERED: 04/09/25-[address]: ORDERED: Met Prof Fast, AST, ALT, Lipid Panel, Vitamin D 25-OH, Free T4, TSH Test Result Flag Reference Sodium 142 135-145 mmol/L Potassium 4.1 3.3-5.1 mmol/L CL 105 96-108 mmol/L CO2 28 22-29 mmol/L Gap 13 12-20 BUN 12 9-16 mg/dL Creat 0.82 0.5-1.4 mg/dL eGFR > 60 Chronic Kidney Disease: Estimated GFR < 60 mL/min/1.73m2 Severe Kidney Disease: Estimated GFR < 15 mL/min/1.73m2 FBS 88 60-99 mg/dL CA 9.2 8.4-10.2 mg/dL AST (GOT) 28 5-31 U/L ALT (GPT) 13 0-31 U/L Triglyceride 79 <150 mg/dL Desirable Triglyceride: less than 150 mg/dL Borderline High Triglyceride 150-199 mg/dL High Triglyceride: 200-499 mg/dL Very High Triglyceride: greater than or equal to 5OO mg/dL Cholesterol 165 <200 mg/dL Desirable Cholesterol: less than 200 mg/dL Borderline High Cholesterol: 200-239 mg/dL High Cholesterol: greater than 239 mg/dL LDL Calculated 69 <100 mg/dL Desirable LDL: less than 100 mg/dL Near Optimal/Above Optimal LDL: 110-129 mg/dL Borderline High LDL: 130-159 mg/dL High LDL: 160-189 mg/dL Very High LDL: greater than or equal to 190 mg/dL HDL 81 >40 mg/dL Desirable HDL: greater than 40 mg/dL Note: This HDL assay may give artificially low results in patients with liver disease. Vitamin D 25-OH 104.8 >30 ng/mL Health Based Reference Values* < 20 ng/mL Deficient 20-30 ng/mL Insufficient > 30 ng/mL Sufficient *Myranda BOJORQUEZ. N Engl J Med. 2007;357:266-280 There is no well-established upper level of normal vitamin D levels. Some laboratories use 50 ng/mL as an upper limit of normal. However, toxicity is patient-dependent and may occur at any level. Careful correlation with the patient's presentation is necessary and, if there is concern for vitamin D toxicity, treatment should be considered irrespective of the serum level. Care must be taken in interpreting Vitamin D results from different laboratories and methodologies. Published data demonstrated that results from patients undergoing hemodialysis may show a negative bias when tested with various automated 25-OH vitamin D assays when compared to LC-MS/MS. When testing samples from patients whose predominant form of Vitamin D is Vitamin D2, such as patients receiving Vitamin D2 supplementation, results that are subtherapeutic should be confirmed with another method such as LC-MS/MS. Free T4 1.08 0.71-1.85 ng/dL TSH 3rd Gen. 1.22 0.32-4.0 uIU/mL TSH 3rd Generation ([facility]) Coding Level of Care Code Est Pt Level 4 (00928) Complex EM visit Add On G2211 Diagnoses Post-menopausal bleeding N95.0 Acquired hypothyroidism E03.9 Dyslipidemia E78.5 Assessment & Plan Assessment & Plan (1) Post-menopausal bleeding: Code(s): N95.0 - Postmenopausal bleeding Category: Medical Plan: Ordered that stat ultrasound pelvic and transvaginal. Hemoglobin hematocrit level ordered (2) Acquired hypothyroidism: Code(s): E03.9 - Hypothyroidism, unspecified Category: Medical Plan: Latest thyroid levels are within normal limits, continue current dose of levothyroxine 50 mcg daily (3) Dyslipidemia: Code(s): E78.5 - Hyperlipidemia, unspecified Category: Medical Plan: Fasting lipids are within normal limits, continued on simvastatin and [place] 3 fatty acid supplements at the same dose. Orders: Orders Hemoglobin and Hematocrit 04/17/25 N95.0 - Postmenopausal bleeding US pelvic and transvaginal 04/15/25 N95.0 - Postmenopausal bleeding
--- OUTSIDE RECORDS SUMMARY | 2025-04-15 11:06 | XMS_ITS | Patient Health Record ---
Author Organization [facility] Address [address] [place] [address] Care Team Providers Care Real Estate Specialist Name Role Phone Bernard MACEDO, Pina Primary Care Provider Paul Calvin Unavailable [phone] Allergies No Known Allergies Reason For Referral [...] Problem Status W/U Status Risk Notes Problem 941638889 Encounter for screening for malignant neoplasm of colon (Z12.11) Active confirmed Problem 399159541 History of adenomatous polyp of colon (Z86.010) Active confirmed Problem Screening for malignant neoplasm of rectum (971709875) Encounter for screening for malignant neoplasm of rectum (Z12.12) Active confirmed Problem History of polyp of colon (situation) (455383888) History of colon polyps (Z86.010) Active confirmed Problem 697163331 Family history o f colon cancer (Z80.0) Active confirmed Problem 546845091 Long-term use of aspirin therapy (Z79.82) Active confirmed Problem Diverticulosis of colon (639456696) Diverticulosis of colon (K57.30) Active confirmed Plan Of Treatment Future Test Test Name Order Date COLONOSCOPY 05/05/2016 COLONOSCOPY 01/04/2022 Insurance Providers Payer Name Payer Address Payer Phone Subscriber Number Group Number Insured Name Patient Relationship to Insured Coverage Start Date Coverage End Date MED[place]ARE OF [place] [address] [place] [address] [phone] [id number] HERMILO SNOW Self - patient is the insured [facility] [address] [place] [phone] [id number] HERMILO SNOW Self - patient is the insured Medical (General) History Medical History History ICD Code Colonoscopy 02-02-2011--small tubular adenoma removed; colonoscopies in 1996, 1999, and 2005--tubular adenomas removed; diffuse diverticulosis 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
--- OUTSIDE RECORDS SUMMARY | 2025-04-15 11:06 | XMS_ITS | Patient Health Record ---
Author Organization [facility] Sarina wilfredo [place] Address [address] [facility] [address] Care Team Providers Care Wad Compressor Operator Adjuster Name Role Phone Bernard MACEDO, Pina John Primary Care Provider Un available Black, Krissy Unavailable [phone] Allergies No Known Allergies Results Component Value [...] Problem Acquired hammer toe of right foot (4623537607921895 ) Other hammer toe(s) (acquired), right foot (M20.41) Active confirmed Problem Localized, primary osteoarthritis of the ankle and/or foot (687367309) Arthritis of joint of lesser toe, right (M19.071) Active confirmed Problem Osteoarthritis of midtarsal joint of left foot (1498040802923881 ) Osteoarthritis of midtarsal joint of left foot (M19.072) Active confirmed Problem Osteoarthritis of midtarsal joint of right foot (4987495134463487 ) Osteoarthritis of midtarsal joint of right foot (M19.071) Active confirmed Vital Signs Blood pressure diastolic 79 mm Hg 03/17/2025 Height 4 ft 10 in in 03/17/2025 Blood pressure systolic 122 mm Hg 03/17/2025 Weight 130 lbs lbs 03/17/2025 BMI 27.17 kg/m2 03/17/2025 Procedures Procedure Date Ordered Date Performed Result Body Sit e 95641-LHLPJJU NAIL, 1-5 03/17/2025 N/A Encounters Encounter Location Date Provider Diagnosis [facility] [place] [address] [place] [address] 03/17/2025 Krissy Black Pain in right toe(s) [...] Treatment Pending Test Test Name Order Date [id number] NAIL, 1-5 03/17/2025 Insurance Providers Payer Name Payer Address Payer Phone Subscriber Number Group Number Insured Name Patient Relationship to Insured Coverage Start Date Coverage End Date Medicare National [employer] [address] [place] [address] [id number] Radhika Gould Self - patient is the insured [address] [facility] [address] [place] [address] [phone] [id number] Radhika Gould Self - patient is [...]
== END 2025-04-15 10:05 | disposition home or self-care (01) ==
LOC: HO.HMCC 09:23
PROVIDERS: PCP Internal Medicine; Visit Provider Internal Medicine
DX: N95.0 Postmenopausal bleeding (principal); E03.9 Hypothyroidism, unspecified; E78.5 Hyperlipidemia, unspecified

== ENCOUNTER → 2025-04-15 09:22 | Outpatient (BNVA) | payer MEDICARE, OTHER, SELFPAY | PROVIDERS: PCP Internal Medicine; Visit Provider Internal Medicine | DX: N95.0 Postmenopausal bleeding (principal); E03.9 Hypothyroidism, unspecified; E78.5 Hyperlipidemia, unspecified; R42 Dizziness and giddiness | CPT/HCPCS: 96127; 99212 ==

== ENCOUNTER 2025-04-17 09:28 | Outpatient (REF) | payer MEDICARE, OTHER, SELFPAY ==
[2025-04-17 09:57] LABS: Hematocrit 40.3 % (37.0-47.0); Hemoglobin 13.1 g/dl (12.0-16.0)
== END 2025-04-17 09:29 | disposition home or self-care (01) ==
LOC: HO.LAB 09:28
PROVIDERS: PCP Internal Medicine; Visit Provider Internal Medicine
DX: N95.0 Postmenopausal bleeding (principal)
CPT/HCPCS: 36415; 85014; 85018

== ENCOUNTER 2025-06-12 14:25 | Outpatient (REF) | payer MEDICARE, OTHER, SELFPAY ==
--- NOTE | ~2025-06-12 | US_ITS ---
EXAMINATION: US PELVIS CLINICAL INFORMATION: N95.0 - Postmenopausal bleeding COMPARISON: None available. TECHNIQUE: Ultrasound of the pelvis is performed using transvaginal transducers along with Doppler. Transvaginal probe could not be inserted. FINDINGS: Uterus: The uterus is anteverted and measures 6.0 x 2.4 x 5.7 cm. The endometrial stripe is not clearly identified. The uterus is smooth in contour and has normal myometrial echogenicity. No visible fibroid. Adnexa: Right ovary was nonvisualized Left ovary measures 1.0 x 0.9 x 2.0 cm. US/US pelvic and transvaginal IMPRESSION: Limited study. Transvaginal probe could not be inserted. The endometrial stripe is not clearly identified and is either thin and atrophic or obscured by another more infiltrative process. Consider MRI pelvis/uterus. Electronically signed by: Jose Armando Kumar MD 06/12/2025 03:05 PM [facility]
--- OUTSIDE RECORDS SUMMARY | 2025-06-12 19:47 | XMS_ITS | Patient Health Record ---
Author Organization [facility] Sarina wilfredo [place] Address [address] [place] [address] Care Team Providers Care Chair Mechanic Name Role Phone Bernard MACEDO, Pina John Primary Care Provider Un available Black, Krissy Unavailable [phone] Allergies No Known Allergies Results Component Value [...] Problem Acquired hammer toe of right foot (0017563595505315 ) Other hammer toe(s) (acquired), right foot (M20.41) Active confirmed Problem Localized, primary osteoarthritis of the ankle and/or foot (411048560) Arthritis of joint of lesser toe, right (M19.071) Active confirmed Problem Osteoarthritis of midtarsal joint of left foot (4986283265534421 ) Osteoarthritis of midtarsal joint of left foot (M19.072) Active confirmed Problem Osteoarthritis of midtarsal joint of right foot (0344485598015070 ) Osteoarthritis of midtarsal joint of right foot (M19.071) Active confirmed Vital Signs Blood pressure diastolic 79 mm Hg 03/17/2025 Height 4 ft 10 in in 03/17/2025 Blood pressure systolic 122 mm Hg 03/17/2025 Weight 130 lbs lbs 03/17/2025 BMI 27.17 kg/m2 03/17/2025 Procedures Procedure Date Ordered Date Performed Result Body Sit e 06185-RKHDJHC NAIL, 1-5 03/17/2025 N/A Encounters Encounter Location Date Provider Diagnosis [facility] [place] [address] [place] [address] 03/17/2025 Krissy Black Pain in right toe(s) [...] Treatment Pending Test Test Name Order Date [id number] NAIL, 1-5 03/17/2025 Insurance Providers Payer Name Payer Address Payer Phone Subscriber Number Group Number Insured Name Patient Relationship to Insured Coverage Start Date Coverage End Date Medicare National [employer] [address] [facility] [address] [id number] Radhika Gould Self - patient is the insured [address] [facility] [address] [place] [address] [id number] Radhika Gould Self - patient is [...]
--- OUTSIDE RECORDS SUMMARY | 2025-06-12 19:47 | XMS_ITS | Patient Health Record ---
Author Organization [facility] Address [address] [place] [address] Care Team Providers Care Oracle Financials Developer Name Role Phone Bernard MACEDO, Pina Primary Care Provider Paul Calvin Unavailable [phone] Allergies No Known Allergies Reason For Referral No Information Medications Medication SIG (Take, Route, Frequency, Duration) Notes Start Date End Date Status Aspirin Adult Low Strength 81 MG Tablet Delayed Release 1 tablet Orally Once a day Active Multivitamin Adult 1 Tablet 1 tablet Ora lly once a day Active Folic Acid 400 MCG Tablet 1 tablet Orall y Once a day Active Multivitamin - Tablet 1 tablet Orally On ce a day; Duration: 30 day(s) Active Simvastatin 20 MG Tablet 1 tablet in the evening Orally Once a day Active Levothyroxine Sodium 50 MCG Tablet 1 tablet Orally Once a day Active Glucosamine 500 MG Capsule 1 capsule wit h a meal Orally Once a day Active Fish Oil 1000 MG Capsule 1 capsule Orall y Once a day Active Vitamin B12 Active Immunizations Vaccine Route Administration Date Status Comme nts Flu vaccine no Preserv 3 and > Unknown 04/13/2016 Admin istered Influenza Unknown 04/20/2021 Administered Social History Social History Additional Details Category Social Info Options Details Miscellaneous: Marital status: Occupation: retired Section Notes: Nonsmoker; 1-3 glasses of wi ne QD Nonsmoker; 1-3 glasses of wi ne QD Problems Problem Type SNOMED Code ICD Code Onset Dates Problem Status W/U Status Risk Notes Problem Screening for malignant neoplasm of colon (078933079) Encounter for screening for malignant neoplasm of colon (Z12.11) Active confirmed Problem History of adenomatous polyp of colon (000582217) History of adenomatous polyp of colon (Z86.010) Active confirmed Problem Screening for malignant neoplasm of rectum (015826574) Encounter for screening for malignant neoplasm of rectum (Z12.12) Active confirmed Problem History of polyp of colon (situation) (167019262) History of colon polyps (Z86.010) Active confirmed Problem Family History of Cancer of Colon (Situation) (271250240) Family history of colon cancer (Z80.0) Active confirmed Problem Long-term current use of antiplatelet drug (697798303146891) Long-term use of aspirin therapy (Z79.82) Active confirmed Problem Diverticulosis of colon (280696953) Diverticulosis of colon (K57.30) Active confirmed Plan Of Treatment Future Test Test Name Order Date COLONOSCOPY 05/05/2016 COLONOSCOPY 01/04/2022 Insurance Providers Payer Name Payer Address Payer Phone Subscriber Number Group Number Insured Name Patient Relationship to Insured Coverage Start Date Coverage End Date [place]ARE OF [place] [address] [place] [address] [id number] HERMILO SNOW Self - patient is the insured [facility] [address] [place] [address] [id number] HERMILO SNOW Self - patient is the insured Medical (General) History Medical History History ICD Code Colonoscopy 02-02-2011--small tubular adenoma removed; colonoscopies in 1996, 1999, and 2005--tubular adenomas removed; diffuse diverticulosis 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
== END 2025-06-12 14:26 | disposition home or self-care (01) ==
LOC: HO.HMGCX 14:25
PROVIDERS: PCP Internal Medicine; Visit Provider Internal Medicine
DX: N95.0 Postmenopausal bleeding (principal)
CPT/HCPCS: 76830; 76856

== ENCOUNTER → 2025-06-12 14:29 | Outpatient (BNV) | payer MEDICARE, OTHER, SELFPAY | PROVIDERS: PCP Internal Medicine; Visit Provider Radiology Diagnostic Radiology | DX: N95.0 Postmenopausal bleeding (principal) | CPT/HCPCS: 76830; 76856 ==

== ENCOUNTER 2025-07-12 09:09 | Outpatient (AMB) | payer MEDICARE, OTHER, SELFPAY ==
--- OUTSIDE RECORDS SUMMARY | 2025-07-12 09:13 | XMS_ITS | Patient Health Record ---
Author Organization [facility] Address [address] [place] [id number] Care Team Providers Care Cardiopulmonary Physical Therapist Name Role Phone Bernard MACEDO, Pina Primary Care Provider Paul Calvin Unavailable [phone] Allergies No Known Allergies Reason For Referral [...] Problem Screening for malignant neoplasm of colon (120432550) Encounter for screening for malignant neoplasm of colon (Z12.11) Active confirmed Problem History of adenomatous polyp of colon (268418394) History of adenomatous polyp of colon (Z86.010) Active confirmed Problem Screening for malignant neoplasm of rectum (309249093) Encounter for screening for malignant neoplasm of rectum (Z12.12) Active confirmed Problem History of polyp of colon (situation) (953817082) History of colon polyps (Z86.010) Active confirmed Problem Family History of Cancer of Colon (Situation) (733865788) Family history of colon cancer (Z80.0) Active confirmed Problem Long-term current use of antiplatelet drug (417040254182179) Long-term use of aspirin therapy (Z79.82) Active confirmed Problem Diverticulosis of colon (596036637) Diverticulosis of colon (K57.30) Active confirmed Plan Of Treatment Future Test Test Name Order Date COLONOSCOPY 05/05/2016 COLONOSCOPY 01/04/2022 Insurance Providers Payer Name Payer Address Payer Phone Subscriber Number Group Number Insured Name Patient Relationship to Insured Coverage Start Date Coverage End Date MEDICARE OF [place] [address] [place] [address] [id number] HERMILO SNOW Self - patient is the insured [facility] [address] [place] [address] [id number] HERMILO SNOW Self - patient is the insured Medical (General) History Medical History History ICD Code Colonoscopy 02-02-2011--small tubular adenoma removed; colonoscopies in 1996, 1999, and 2005--tubular adenomas removed; diffuse diverticulosis 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
--- OUTSIDE RECORDS SUMMARY | 2025-07-12 09:13 | XMS_ITS | Patient Health Record ---
Author Organization [facility] Sarina wilfredo [place] Address [address] [place] [address] Care Team Providers Care Hot Mill Observer Name Role Phone Bernard MACEDO, Pina John Primary Care Provider Un available Black, Krissy Unavailable [phone] Allergies No Known Allergies Results Component Value [...] Problem Acquired hammer toe of right foot (2716399609152504 ) Other hammer toe(s) (acquired), right foot (M20.41) Active confirmed Problem Localized, primary osteoarthritis of the ankle and/or foot (289233900) Arthritis of joint of lesser toe, right (M19.071) Active confirmed Problem Osteoarthritis of midtarsal joint of left foot (4099927041589301 ) Osteoarthritis of midtarsal joint of left foot (M19.072) Active confirmed Problem Osteoarthritis of midtarsal joint of right foot (9652162686944185 ) Osteoarthritis of midtarsal joint of right foot (M19.071) Active confirmed Vital Signs Blood pressure diastolic 79 mm Hg 03/17/2025 Height 4 ft 10 in in 03/17/2025 Blood pressure systolic 122 mm Hg 03/17/2025 Weight 130 lbs lbs 03/17/2025 BMI 27.17 kg/m2 03/17/2025 Procedures Procedure Date Ordered Date Performed Result Body Sit e [id number] NAIL, 1-5 03/17/2025 N/A Encounters Encounter Location Date Provider Diagnosis [facility] [address] [place] [address] 03/17/2025 Krissy Black Pain in right toe(s) [...] Treatment Pending Test Test Name Order Date [id number] NAIL, 1-5 03/17/2025 Insurance Providers Payer Name Payer Address Payer Phone Subscriber Number Group Number Insured Name Patient Relationship to Insured Coverage Start Date Coverage End Date [employer] [address] [place] [address] [id number] Radhika Gould Self - patient is the insured [address] [facility] [address] [facility] [place] [address] [id number] Radhika Gould Self - patient is [...]
[2025-07-12 10:03] VITALS: BP 102/62; PULSE 61; RESP 16; TEMP 36.8; O2SAT 99; BMI 26.5
--- NOTE | 2025-07-12 10:03 | AM.OFFWIN_ITS ---
Intake Vital Signs 07/12/25 10:03 Height 4 ft 10 in Weight 127 lb BMI 26.5 BP 102/62 Blood Pressure Location Rt brachial Position Sitting Respiration 16 Pulse 61 Pulse Source Pulse Oximeter Temp 98.2 F Temp Source Oral Pulse Oximetry (%) 99 Oxygen Delivery Method Room Air Intake Visit Reasons: EP red, hot, painful vericose vein on lt leg Intake Note: Pt is here today c/o Lt leg red, hot painful varicose vein x4days Patient Tobacco Use Status: Former Tobacco user Allergies No Known Allergies Allergy (Mild, Verified 07/12/25 10:26) N/A Medication List - Last Reconciled 07/12/25 by Elizabeth Meyer, [facility] glucosamine HCl 500 mg PO DAILY levothyroxine 50 mcg PO QAM multivitamin 1 tab PO DAILY omega-3 fatty acids (Fish Oil Concentrate) 1,000 mg PO DAILY simvastatin 20 mg PO BEDTIME HPI HPI Comments History of Present Illness Details [phone] History of Present Illness The patient is a 79 year old female presenting with a red, hot, and painful left leg. Pain in left leg: - The patient first noticed pain in her left leg when climbing into bed, initially suspecting she had hit her knee and expecting a bruise to form. - The leg is painful to touch. - Initially, one area was bothersome, an d then another area also became painful. - The patient has been wearing her compr ession stocking all the time to help with the symptoms. - She has a history of varicose veins fo r which she had sclerotherapy years ago, but they have not been bothersome for years. - She denies chest pain, shortness of br eath, or pain behind the leg. Past Medical History - History of varicose veins - History of sclerotherapy for varicose veins Review of Systems - Cardiovascular: Denies chest pain. - Respiratory: Denies shortness of breat h. - Extremities: Reports a red, hot, painf ul left leg which is tender to touch. - Neurological: Reports good sensation i n her foot. Physical Exam General: Well developed, well nourished, in no acute distress. Appears stated age. Head: Normocephalic, atraumatic. Eyes: Pupils are equal, round and reactive to light and accommodation. Conjunctivae are clear. Vision grossly normal. Lungs: Clear to auscultation bilaterally. No rales, rhonchi or wheeze noted. Good air flow in all blanco. Heart: Regular rate and rhythm. No murmurs, click, rubs or gallops are noted. Pulses: Peripheral pulses are equal and palpable bilaterally. Extremities: Torturous varicose vein left upper and lower ext; just above her knee, medial aspect and inner aspect of thigh is erythematous, mildly warm, TTP over a varicose vein. No clubbing, cyanosis nor edema is noted. Psych: Mood and affect appropriate. Diagnostic results CLINICAL HISTORY: Left leg pain, VVs Left lower extremity duplex venous Doppler Comparison: None Technique: Grayscale/Color/Duplex Doppler sonographic evaluation of the deep venous system within the left lower extremity. Findings: Left lower extremity Common femoral vein: Patent bilaterally CFV/GSV junction: Patent Femoral vein: Patent Popliteal vein: Patent Infrapopliteal veins: Patent where seen Soft tissue: Noncompressible varicosities medial left knee region. Suspect post ablation left greater saphenous vein portions were not visualized. Impression: 1. Negative for left lower extremity DVT . 2. No Mcallister's cyst 3. Noncompressible varicosities and prob able post ablation of the greater saphenous vein This document has been electronically signed by: Gaurav Quiroz MD on 07/12/2025 12:52:47 Medical Decision Making The patient is a 79-year-old female who presented with a red, hot, and painful left leg. Given her symptoms and potential for upcoming air travel, the primary concern is to rule out a deep vein thrombosis (DVT). The patient denies chest pain or shortness of breath, which decreases the immediate concern for a pulmonary embolism. An urgent STAT ultrasound of the left leg was ordered to rule out a clot. The plan for management is contingent on the results of the ultrasound. If the scan is positive for a large DVT, she may require inpatient admission; however, a smaller clot could potentially be managed on an outpatient basis. If the scan is negative, I will call her to confirm and she will be discharged home. Plan 1. Pain In Left Leg - To rule out deep vein thrombosis, an u rgent STAT ultrasound of the left leg has been ordered. - The patient has been directed to go to the [facility] hospital immediately for the study. - If the ultrasound is positive for a bl ood clot, the patient was instructed to wait at the facility for further instructions on treatment. - Management will be determined by the s ize of the clot, with possibilities including outpatient treatment or inpatient admission. - If the ultrasound is negative, the pat ient was informed she could go home, and I will call to confirm the results. At 1255 Pt was called; made aware of the US findings. ADvised to use Ibu 600 mg TID x 7 days, wear compression stockings daily and f/u with PCP For further mgmt. This is a low risk for VTE complication and therefore anticoag was not started. Edu on reasons to seek additional or sooner care. All questions answered. Patient Instructions - Go directly to the [facility] hospital for a n ultrasound of your left leg. - You will need to go to the second floo r, but you may have to register on the first floor first. - If the results are positive for a bloo d clot, please wait right there at the hospital. The staff will call me, and then we will discuss the treatment plan. - If the staff tells you that you can le ave after the test, it likely means there was no clot found, but I will still call you to confirm the results. Consent Patient was informed and verbally consented to the use of an ambient scribe for clinic note documentation during this visit. Total time spent caring for the patient today was 30 minutes. This includes time spent before the visit reviewing the chart, time spent during the visit, and time spent after the visit on documentation, reviewing laboratory results, diagnostic imaging, medications, performing a medically necessary evaluation, counseling on diagnoses, care coordination, ordering appropriate tests, ordering appropriate medications, review of tests performed by other providers, reporting test results with the patient, communication with other healthcare providers. REPLACED BY [facility] Medical History (Updated 07/12/25 @ 10:34 by Elizabeth Meyer, [facility]) Acquired hypothyroidism Arthritis Basal cell carcinoma Dyslipidemia History of blood transfusion Intraocular melanoma of left eye Mild intermittent asthma Osteoarthritis of right wrist Post-menopausal bleeding Postmenopause Primary osteoarthritis of knees, bilateral Tubular adenoma of colon Surgical History History of colonoscopy History of surgical removal of ganglion cyst Hx of enucleation of left eyeball History of meniscectomy of right knee History of repair of rectocele History of right breast biopsy Hx of tonsillectomy History of appendectomy Family History Father Coronary artery disease Brother Colon cancer Social History Housing: House Alcohol intake: current Alcohol intake frequency: 3 or more drinks per day Patient Tobacco Use Status: Former Tobacco user Years Smoked: 20 years e-Cigarette/Vaping Use: Never Used Current occupational status: retired Cognitive needs: No Hearing needs: No Vision needs: Yes Physical Exam Vital Signs: Last Vital Signs Temp 98.2 F 07/12/25 10:03 Pulse 61 07/12/25 10:03 Resp 16 07/12/25 10:03 BP 102/62 07/12/25 10:03 Pulse Ox 99 07/12/25 10:03 Oxygen Delivery Method Room Air 07/12/25 10:03 BMI result Body Mass Index 26.5 Assessment & Plan Assessment & Plan (1) Varicose veins with swelling: Code(s): I83.899 - Varicose veins of unspecified lower extremity with other complications (2) Superficial thrombophlebitis: Code(s): I80.9 - Phlebitis and thrombophlebitis of unspecified site Qualifiers: Superficial thrombophlebitis-Involved body area: lower extremity Laterality: left Qualified Code(s): I80.02 - Phlebitis and thrombophlebitis of superficial vessels of left lower extremity Plan . Orders: Orders US venous duplex LE LT Today I83.899 - Varicose veins of unspecified lower extremity with other complications Medications: New ibuprofen 600 mg PO Q8H PRN 21 tabs 0RF pain 7 days Coding Level of Care Code Est Pt Level 4 (81498) Diagnoses Varicose veins with swelling I83.899 Thrombophlebitis of superficial veins of left lower extremity I80.02 Superficial thrombophlebitis-Involved body area: lower extremity Laterality: left
== END 2025-07-12 10:40 | disposition home or self-care (01) ==
PROVIDERS: PCP Internal Medicine; Visit Provider Nurse Practitioner Family
DX: I83.899 Varicose veins of unspecified lower extremity with other complications (principal); I80.02 Phlebitis and thrombophlebitis of superficial vessels of left lower extremity

== ENCOUNTER 2025-07-12 10:54 | Outpatient (REF) | payer MEDICARE, OTHER, SELFPAY ==
--- NOTE | ~2025-07-12 | US_ITS ---
CLINICAL HISTORY: Left leg pain, VVs Left lower extremity duplex venous Doppler Comparison: None Technique: Grayscale/Color/Duplex Doppler sonographic evaluation of the deep venous system within the left lower extremity. Findings: Left lower extremity Common femoral vein: Patent bilaterally CFV/GSV junction: Patent Femoral vein: Patent Popliteal vein: Patent Infrapopliteal veins: Patent where seen Soft tissue: Noncompressible varicosities medial left knee region. Suspect post ablation left greater saphenous vein portions were not visualized. Impression: 1. Negative for left lower extremity DVT. 2. No Mcallister's cyst 3. Noncompressible varicosities and probable post ablation of the greater saphenous vein This document has been electronically signed by: Gaurav Quiroz MD on 07/12/2025 12:52:47
== END 2025-07-12 10:55 | disposition home or self-care (01) ==
LOC: HO.US 10:54
PROVIDERS: PCP Internal Medicine; Visit Provider Nurse Practitioner Family
DX: I80.02 Phlebitis and thrombophlebitis of superficial vessels of left lower extremity (principal); I83.899 Varicose veins of unspecified lower extremity with other complications; M79.605 Pain in left leg
CPT/HCPCS: 93971; 99212